=== PATIENT | female | born 1960 | race Caucasian/White ===

== ENCOUNTER → 2017-06-11 16:21 | Outpatient (CLI) | payer OTHER, SELFPAY ==
[2017-06-11 17:44] LABS: Hematocrit 32.7 % (37-47); Hemoglobin 9.8 g/dl (12.0-15.0); Mean Corpuscular Hgb 22.1 pg (27.0-32.0); Mean Corpuscular Volume 73.6 fL (81-99); Mean Platelet Vol. 10.6 fl (6.2-12.0); Platelet Count 267 K/mm3 (150-450); RBC Distribution Width CV 16.6 % (11.6-14.6); RBC Distribution Width SD 43.3 fl (35.1-43.9); Red Blood Count 4.44 M/mm3 (4.2-5.4); White Blood Count 7.5 K/mm3 (4.4-11.0)
[2017-06-11 17:49] LABS: Scan Indicated on CBC? Y/N YES- FLAGS NOTED
[2017-06-11 18:14] LABS: Differential Comment SCANNED; Erythrocyte Sedimentation Rate 13 mm/hr (0-30)
== END ==
PROVIDERS: Family Provider Internal Medicine; PCP Internal Medicine; Visit Provider Internal Medicine Gastroenterology
DX: K51.90 Ulcerative colitis, unspecified, without complications (principal)
CPT/HCPCS: 36415; 85027; 85652; 86140

== ENCOUNTER → 2017-07-09 16:27 | Outpatient (CLI) | payer OTHER, SELFPAY ==
[2017-07-12 03:07] LABS: QNTFERON TB Ag Minus Nil Value 0.12 IU/mL (.); QNTFERON TB Mitogen Value > 10.00 IU/mL (.); QNTFERON TB Nil Value 0.08 IU/mL (.)
[2017-07-12 11:32] LABS: HEPATITIS B SURFACE AG Negative (Negative); QNTIFERON TB Gold Negative (Negative)
== END ==
PROVIDERS: Family Provider Internal Medicine; PCP Internal Medicine; Visit Provider Internal Medicine Gastroenterology
DX: K51.90 Ulcerative colitis, unspecified, without complications (principal)
CPT/HCPCS: 36415; 86480; 87340

== ENCOUNTER 2017-08-31 02:22 | Emergency (ER) | payer OTHER, SELFPAY ==
[2017-08-31 02:23] VITALS: BP 136/108; PULSE 105; RESP 20; TEMP 36.8; O2SAT 96; BMI 35.1
--- NOTE | 2017-08-31 02:26 | ED.RN ---
NO OLD EKG'S IN MUSE
[2017-08-31 02:27] VITALS: PULSE 104; RESP 23; O2SAT 94
--- NOTE | 2017-08-31 02:40 | EKG12_ITS ---
Test Reason : PALPITATIONS Blood Pressure : / mmHG Vent. Rate : 105 BPM Atrial Rate : 105 BPM P-R Int : 150 ms QRS Dur : 074 ms QT Int : 332 ms P-R-T Axes : 057 078 006 degrees QTc Int : 438 ms Sinus tachycardia Nonspecific T wave abnormality Abnormal ECG Confirmed by AI AU ([id number]), supervising film or videotape editor ISABEL HENDERSON ([id number]) on 09/09/2017 6:07:10 PM Referred By: LYRIC Confirmed By:AI AU
[2017-08-31 02:49] LABS: Absolute Lymphocyte Count 2.26 X10^3/ul (0.83-4.51); Basophil# 0.06 X10^3/uL; Basophil% 0.4 % (0-1); Eosinophil# 0.13 X10^3/uL; Hematocrit 40.4 % (37-47); Hemoglobin 12.3 g/dl (12.0-15.0); Lymphocyte # 2.26 X10^3/ul (4.0); Lymphocyte % 16.9 % (19-41); Mean Corp Hgb Conc 30.4 g/gl (32-36); Mean Corpuscular Hgb 23.6 pg (27.0-32.0); Mean Corpuscular Volume 77.4 fL (81-99); Mean Platelet Vol. 10.1 fl (6.2-12.0); Monocyte# 0.96 X10^3/uL; Monocyte% 7.2 % (0-10); Neutrophil # 9.95 X10^3/uL (2.7-7.7); Neutrophil % 74.2 % (47-70); Platelet Count 401 K/mm3 (150-450); RBC Distribution Width CV 18.8 % (11.6-14.6); RBC Distribution Width SD 52.9 fl (35.1-43.9); Red Blood Count 5.22 M/mm3 (4.2-5.4); White Blood Count 13.4 K/mm3 (4.4-11.0)
[2017-08-31] MEDS: Ondansetron 4 MG/2 ML Vial IV (02:49)
--- NOTE | 2017-08-31 02:50 | RAD_ITS ---
STUDY: X-RAY CHEST REASON FOR EXAM: Female, 56 years old. Shortness of breath and cough TECHNIQUE: PA and lateral views of the chest. COMPARISON: None. FINDINGS: Patchy airspace infiltration at the left lung base, partially obscuring the hemidiaphragm. Small left pleural effusion. Right lung is clear. No pleural effusion on the right. No pneumothorax. Normal size heart. Normal mediastinum and zbigniew. Normal visualized pulmonary arteries. Normal visualized aortic arch and descending thoracic aorta. Normal visualized thoracic spine. Normal visualized ribs, clavicles, and shoulders. There is no demonstrated abnormality of the visualized soft tissue structures of the upper abdomen. RAD/Chest PA and Lateral IMPRESSION: Left basilar pneumonia with small left pleural effusion. Electronically Signed: Thierry Hernandez MD at 3:20 EDT Tel , Service support ,
[2017-08-31 02:52] LABS: POSITIVE COUNT NO; POSITIVE DIFFERENTIAL NO; POSITIVE MORPHOLOGY NO
--- NOTE | 2017-08-31 02:53 | ED.DCSUM_ITS ---
- ER Visit Summary Date of Service: 08/31/17 Chief Complaint: Cough, nausea History of Present Illness: The patient is a 56 F patient presents 3 days of symptoms. Initially started with asthma-like symptoms. She has asthma she is younger, saw a nurse practitioner 3 days ago. She is given prescription of Singulair, Rema, inhaler. Since then developed nausea and sweats. Decreased appetite. No urinary symptoms. No vomiting or diarrhea. No chest pains or shortness of breath. Wheezing improved with her inhaler. Denies any sick contacts. She states also feeling palpitations with no lightheaded symptoms. No other complaints. Past medical history: Ulcerative colitis, asthma, depression Physical Examination: General: Alert and oriented ?3, no acute distress HEENT: Normocephalic, atraumatic. Dry mucosa membranes Neck: supple, nontender. Cardiovascular: Regular rate 104 and rhythm, no murmurs Respiratory: Normal breath sounds, symmetric, no distress Abdomen: Soft, nontender, nondistended Extremities: Nontender, no edema, pulses intact ?4 Neuro: no focal neurological deficits. Test Results: EKG sinus 105, no ST or T-wave changes. White count 13.4. Creatinine 1.09. UA leukocytes 100, WBC 5-10. Urine culture pending. Two- view chest x-ray: Left basilar infiltrate Emergency Department Course and Treatment: Patient nontoxic, afebrile. Pulse ox 94 on room air. EKG obtained for palpitations slightly tachycardic. Labs no white count 13, creatinine 1.09. She given IV fluids. Urine notes leukocytes white blood cell count, she is asymptomatic, I did send for urine culture. Chest x-ray notes a left basilar infiltrate. Patient does meet SIRS criteria, clinically she is stable. I did ambulate the patient on room air went from 95-93%. Patient will be placed on Levaquin orally for 7 days. This will cover for any possible urine infections. Discussed signs and symptoms patient to return the ED, otherwise follow-up with her PCP. All questions were answered. Treatment Plan: [] Disposition: Discharge Impression: Community-acquired pneumonia This note was generated with [employer] dictation software. It may contain incorrect words, spelling, and punctuation that were not noted in review of the chart prior to signing ED Disposition - Plan for ED Patient: Disposition: Home or Assisted Living Chief Complaint: Palpitations Diagnosis: Community acquired pneumonia Instructions: ED Pneumonia Adult Prescriptions: Ondansetron [Zofran Odt] 4 mg PO Q8H PRN PRN #10 tablet PRN Reason: Nausea Levofloxacin [Levaquin] 750 mg PO DAILY #6 tablet Referrals: Ban Gong MD [Primary Care Provider] - 3-5 Days Additional Instructions: Left lower lobe infiltrate. Continue home medications as needed. Finish antibiotics as prescribed.
[2017-08-31 03:02] LABS: Anion Gap 11 (5-15); BUN 21 mg/dL (7-18); BUN/Creat Ratio 19.3 RATIO (10-20); Calcium,Total 9.1 mg/dL (8.5-10.1); Chloride 107 mmol/L (98-107); Creatinine, Serum 1.09 mg/dL (0.55-1.02); EST Glomerular Filtration Rate 55 mL/min (>60); Est Glom Filt Rate - Afr Amer 67 mL/min (>60); Estimated Creatinine Clearance 47.67 ml/min; Glucose 127 mg/dL (74-106); Potassium 4.1 mmol/L (3.5-5.1); Sodium Level 141 mmol/L (136-145)
[2017-08-31 03:08] LABS: Mucous, Urine 0 SEEN /hpf (<or=2+); Red Blood Cells-Urine 0 SEEN /hpf (0-5)
[2017-08-31 03:10] LABS: Color, Urine Yellow (Yellow); Glucose, Dipstick Normal (Normal); Ketone-Dipstick Negative (Negative); Leukocyte Esterase-Dipstick 100 /ul (Negative); Nitrite-Dipstick Negative (Negative); Occult Blood-Urine 10 /ul (Negative); Protein-Dipstick 30 mg/dl (Negative); Urine Bilirubin Dipstick Negative (Negative); Urine Clarity Sl. Cloudy (Clear); Urine Urobilinogen Normal (Normal)
[2017-08-31 03:17] LABS: Bacteria RARE /hpf (None Seen); Squamous Epithelial Cells - UA 0-5 SEEN /hpf (5-10); White Blood Cells 5-10 SEEN /hpf (0-5)
[2017-08-31 03:43] VITALS: BP 175/111; PULSE 103; RESP 18; O2SAT 95
[2017-08-31] MEDS: levoFLOXacin 750 MG Tablet PO (04:04)
[2017-08-31 04:30] VITALS: BP 159/100; PULSE 100; RESP 15
== END 2017-08-31 04:10 | disposition home or self-care (01) ==
PROVIDERS: Emergency Provider Emergency Medicine; Family Provider Internal Medicine; PCP Internal Medicine
DX: J18.9 Pneumonia, unspecified organism (principal); R00.2 Palpitations; J45.909 Unspecified asthma, uncomplicated; F32.9 Major depressive disorder, single episode, unspecified; Z79.899 Other long term (current) drug therapy
CPT/HCPCS: 71046; 80048; 81001; 85025; 87086; 87088; 93005; 96361; 96374; 99284; J7030; J7040; A4216; J2405

== ENCOUNTER 2017-09-10 15:37 | Emergency (ER) | payer OTHER, SELFPAY ==
[2017-09-10] VITALS (7 sets, daily range): BP systolic 153–158; BP diastolic 89–104; PULSE 102–113; RESP 18–24; TEMP 35.9; O2SAT 95–99; BMI 34.5
--- NOTE | 2017-09-10 15:54 | EKG12_ITS ---
Test Reason : SOB Blood Pressure : / mmHG Vent. Rate : 100 BPM Atrial Rate : 100 BPM P-R Int : 162 ms QRS Dur : 076 ms QT Int : 310 ms P-R-T Axes : -02 070 -17 degrees QTc Int : 399 ms Normal sinus rhythm Nonspecific T wave abnormality Abnormal ECG Confirmed by OSMEL VÁSQUEZ, OMER ([id number]), website/blog editor ISABEL HENDERSON ([id number]) on 09/11/2017 5:12:42 PM Referred By: HUMBERTO Confirmed By:OMER BOLIVAR MD
--- NOTE | 2017-09-10 15:56 | ED.VISSUMM ---
- ER Visit Summary Date of Service: 09/10/17 Chief Complaint: Shortness of breath History of Present Illness: The patient is a 56 F presenting with shortness of breath ?2 weeks. Patient states she was seen in the ED 10 days ago and was diagnosed with pneumonia. She was put on a course of Levaquin. States she was improving until she finished the course of antibiotics and she started becoming more short of breath again. She is on prednisone daily for history of ulcerative colitis. She also has a history of asthma. She has had a nonproductive cough and shortness of breath. She complains of chest tightness. Denies fever or other complaints. Physical Examination: Vitals are stable. Patient is afebrile. Alert no acute distress. HEENT exam is unremarkable. Pharynx is normal, uvula midline Neck is supple. Lungs are diminished bilaterally. Heart is regular rate and rhythm. Abdomen is soft nontender nondistended. Extremities are unremarkable. Skin is warm and dry. No rash No focal neurologic deficit. Remainder of exam is unremarkable. Emergency Department Course and Treatment: Patient is given albuterol, Atrovent. EKG is sinus rate of 100 unchanged from previous. CBC, chemistries unremarkable other than glucose 151, BUN 29, creatinine 1.26. Troponin 0.042. D-dimer is 3.44. Due to elevated d-dimer CTA chest was obtained and shows small bilateral pleural effusions. Differential considerations include infectious, inflammatory, neoplastic etiologies. Repeat troponin is negative. Ambulatory pulse ox is 97-98% on room air. Discussed with Dr. Mora who recommends increasing her prednisone from 10 mg to 40 mg ?5 days. She will follow-up in the office for further evaluation. She is advised to return to the ED for worsening complaints. Disposition: Discharge home Impression: Dyspnea, bilateral pleural effusion This note was generated with [employer] dictation software. It may contain incorrect words, spelling, and punctuation that were not noted in review of the chart prior to signing ED Disposition - Plan for ED Patient: Disposition: Home or Assisted Living Chief Complaint: Shortness of Breath Instructions: ED Dyspnea Shortness of Breath Prescriptions: Prednisone [Deltasone] 40 mg PO DAILY #10 tablet Referrals: Moe Mora MD [STAFF PHYSICIAN] - Ban Gong MD [Primary Care Provider] -
[2017-09-10] MEDS: Albuterol 2.5 MG/3 ML VIAL.NEB. INHALATION ×2 (16:25)
[2017-09-10] MEDS: Ipratropium/Albuterol Sulfate 3 ML AMPUL.NEB INHALATION (16:25)
[2017-09-10 16:33] LABS: Absolute Lymphocyte Count 1.52 X10^3/ul (0.83-4.51); Absolute Neutrophil Count 6.2 X10^3/uL (2.0-7.7); Basophil# 0.04 X10^3/uL; Basophil% 0.5 % (0-1); Eosinophil# 0.02 X10^3/uL; Eosinophils% 0.2 % (0-5); Hematocrit 40.2 % (37-47); Hemoglobin 12.2 g/dl (12.0-15.0); Lymphocyte # 1.52 X10^3/ul (4.0); Lymphocyte % 18.4 % (19-41); Mean Corp Hgb Conc 30.3 g/gl (32-36); Mean Corpuscular Hgb 22.9 pg (27.0-32.0); Mean Corpuscular Volume 75.4 fL (81-99); Mean Platelet Vol. 10.5 fl (6.2-12.0); Monocyte# 0.48 X10^3/uL; Monocyte% 5.8 % (0-10); Neutrophil # 6.18 X10^3/uL (2.7-7.7); Neutrophil % 74.7 % (47-70); Platelet Count 365 K/mm3 (150-450); RBC Distribution Width CV 18.7 % (11.6-14.6); RBC Distribution Width SD 50.9 fl (35.1-43.9); Red Blood Count 5.33 M/mm3 (4.2-5.4); White Blood Count 8.3 K/mm3 (4.4-11.0)
[2017-09-10 16:34] LABS: POSITIVE COUNT NO; POSITIVE DIFFERENTIAL NO; POSITIVE MORPHOLOGY NO
[2017-09-10 16:37] LABS: D-Dimer Quantitative (DVT/PE) 3.44 FEU/ug/m (0.27-0.49)
[2017-09-10 16:47] LABS: Anion Gap 10 (5-15); BUN 29 mg/dL (7-18); Calcium,Total 8.9 mg/dL (8.5-10.1); Chloride 107 mmol/L (98-107); Creatinine, Serum 1.26 mg/dL (0.55-1.02); EST Glomerular Filtration Rate 47 mL/min (>60); Est Glom Filt Rate - Afr Amer 56 mL/min (>60); Glucose 151 mg/dL (74-106); Potassium 4.7 mmol/L (3.5-5.1); Sodium Level 139 mmol/L (136-145)
--- NOTE | 2017-09-10 16:48 | CT_ITS ---
STUDY: CTA CHEST REASON FOR EXAM: Female, 56 years old. Elevated d-dimer/pneumonia RADIATION DOSAGE (If Supplied By Facility): CTDIvol = ( 15.06 ) mGy, DLP = ( 767.14 ) mGycm TECHNIQUE: The examination was performed with the intravenous administration of 100 ml of Isovue 300 contrast material. Post-processing of the angiographic images was performed, with multiplanar reformation and 3D reconstruction. Individualized dose optimization techniques were used for this CT. COMPARISON: Chest x-ray August 31, 2017 FINDINGS: Normal enhancement of the main pulmonary artery and right and left pulmonary arteries. Normal enhancement of the bilateral peripheral pulmonary arteries. There is no demonstrated pulmonary embolism. Normal thoracic aorta and visualized great vessels. There is no demonstrated aortic dissection. Normal heart and pericardium. Normal mediastinum. Normal hilar regions. Normal visualized trachea and bronchi. The lungs are well expanded. Normal pulmonary parenchyma. Small bilateral pleural effusions. Subsegmental atelectasis lung bases. Normal chest wall structures. Normal osseous structures. Normal visualized upper abdomen. CT/CTA Chest W/WO Contrast IMPRESSION: Small bilateral pleural effusions. Differential considerations include infectious, inflammatory, neoplastic etiologies. Electronically Signed: Lazaro Hassan MD at 17:48 EDT , Service support ,
[2017-09-10] MEDS: 0.9% Normal Saline 1,000 ML 999 ML IV (17:32)
--- NOTE | 2017-09-10 20:11 | ED.DEP ---
ED Disposition - Plan for ED Patient: Chief Complaint: Shortness of Breath Instructions: ED Dyspnea Shortness of Breath Prescriptions: Prednisone [Deltasone] 40 mg PO DAILY #10 tablet Referrals: Ban Gong MD [Primary Care Provider] - Moe Mora MD [STAFF PHYSICIAN] -
--- NOTE | 2017-09-10 20:27 | ED.RN ---
IV DC'ED, CATHETER INTACT, SMALL GAUZE DRESSING PLACED. DISCHARGE INSTRUCTIONS GIVEN TO AND REVIEWED WITH PATIENT, PATIENT DENIES QUESTIONS OR CONCERNS AND VOICES UNDERSTANDING OF DISCHARGE INSTRUCTIONS. PT AMBULATES OUT OF ROOM WITHOUT DIFFICULTY.
== END 2017-09-10 20:28 | disposition home or self-care (01) ==
LOC: ED 16:02
PROVIDERS: Emergency Provider Emergency Medicine; Family Provider Internal Medicine; PCP Internal Medicine
DX: J90 Pleural effusion, not elsewhere classified (principal); K51.90 Ulcerative colitis, unspecified, without complications; J45.909 Unspecified asthma, uncomplicated; Z79.82 Long term (current) use of aspirin; Z79.899 Other long term (current) drug therapy
CPT/HCPCS: 71275; 80048; 84484; 85025; 85379; 93005; 94640; 99284; Q9967; A4216

== ENCOUNTER 2017-09-12 07:05 | Inpatient (IN) | payer OTHER, SELFPAY ==
[2017-09-12] VITALS (13 sets, daily range): BP systolic 136–162; BP diastolic 92–108; PULSE 96–108; RESP 16–22; TEMP 36.4–36.7; O2SAT 92–98; BMI 37.8; BMI 37.0; BMI 37.1
--- NOTE | 2017-09-12 07:26 | RAD_ITS ---
STUDY: X-RAY CHEST REASON FOR EXAM: Female, 56 years old. Shortness of breath, recent pneumonia TECHNIQUE: PA and lateral views of the chest. COMPARISON: CTA 09/10/2017, plain radiographs 08/31/2017 FINDINGS: There is minimal atelectasis at the left midlung. A small left pleural effusion is seen. There is mild cardiac enlargement. Normal mediastinum and zbigniew. Normal visualized pulmonary arteries. Normal visualized aortic arch and descending thoracic aorta. Normal visualized thoracic spine. Normal visualized ribs, clavicles, and shoulders. There is no demonstrated abnormality of the visualized soft tissue structures of the upper abdomen. RAD/Chest PA and Lateral IMPRESSION: Minimal left-sided atelectasis with small left pleural effusion. No definite right pleural effusion is seen. Electronically Signed: Tex Martinez DO at 8:50 EDT Tel , Service support ,
--- NOTE | 2017-09-12 07:26 | EKG12_ITS ---
Test Reason : SOB Blood Pressure : / mmHG Vent. Rate : 105 BPM Atrial Rate : 105 BPM P-R Int : 158 ms QRS Dur : 074 ms QT Int : 336 ms P-R-T Axes : 044 072 -15 degrees QTc Int : 444 ms Sinus tachycardia Low voltage QRS Nonspecific T wave abnormality Abnormal ECG Confirmed by CAROL VÁSQUEZ, ABISAI ([id number]), design editor ISABEL HENDERSON ([id number]) on 09/13/2017 2:52:15 PM Referred By: SHAHBAZ Confirmed By:ABISAI MEDINA MD
[2017-09-12 07:44] LABS: Absolute Lymphocyte Count 1.87 X10^3/ul (0.83-4.51); Absolute Neutrophil Count 10.5 X10^3/uL (2.0-7.7); Basophil# 0.02 X10^3/uL; Basophil% 0.1 % (0-1); Eosinophil# 0.06 X10^3/uL; Eosinophils% 0.4 % (0-5); Hematocrit 40.2 % (37-47); Hemoglobin 12.2 g/dl (12.0-15.0); Lymphocyte # 1.87 X10^3/ul (4.0); Lymphocyte % 13.9 % (19-41); Mean Corp Hgb Conc 30.3 g/gl (32-36); Mean Corpuscular Hgb 22.7 pg (27.0-32.0); Mean Corpuscular Volume 74.9 fL (81-99); Mean Platelet Vol. 9.6 fl (6.2-12.0); Monocyte# 1.07 X10^3/uL; Monocyte% 7.9 % (0-10); Neutrophil # 10.46 X10^3/uL (2.7-7.7); Neutrophil % 77.6 % (47-70); Platelet Count 399 K/mm3 (150-450); RBC Distribution Width CV 18.6 % (11.6-14.6); RBC Distribution Width SD 49.9 fl (35.1-43.9); Red Blood Count 5.37 M/mm3 (4.2-5.4); White Blood Count 13.5 K/mm3 (4.4-11.0)
[2017-09-12 07:51] LABS: Differential Indicated SCAN CRITERIA MET; POSITIVE COUNT NO; POSITIVE DIFFERENTIAL NO; POSITIVE MORPHOLOGY YES
[2017-09-12] MEDS: Ipratropium/Albuterol Sulfate 3 ML AMPUL.NEB INHALATION (07:52)
[2017-09-12 07:59] LABS: Anion Gap 11 (5-15); BUN 31 mg/dL (7-18); BUN/Creat Ratio 23.7 RATIO (10-20); Calcium,Total 8.8 mg/dL (8.5-10.1); Chloride 105 mmol/L (98-107); Creatinine, Serum 1.31 mg/dL (0.55-1.02); EST Glomerular Filtration Rate 45 mL/min (>60); Est Glom Filt Rate - Afr Amer 54 mL/min (>60); Estimated Creatinine Clearance 39.67 ml/min; Glucose 109 mg/dL (74-106); Potassium 3.9 mmol/L (3.5-5.1); Sodium Level 137 mmol/L (136-145)
[2017-09-12 08:18] LABS: Anisocytosis 1+
[2017-09-12 08:19] LABS: Microcytosis 1+; Ovalocyte RARE
[2017-09-12 08:20] LABS: Polychromasia RARE
[2017-09-12 09:00] LABS: BNP,B-Type NATRIURETIC PEPTIDE 878.8 pg/mL (0-100)
--- NOTE | 2017-09-12 09:12 | ED.DCSUM_ITS ---
- ER Visit Summary Date of Service: 09/12/17 Chief Complaint: Shortness of breath History of Present Illness: The patient is a 56 F who presents with shortness of breath. She was seen earlier this month and treated for community-acquired pneumonia. She had transiently improved. She was seen 2 days ago for increased shortness of breath. Workup at that time included a CTA which was negative for pulmonary embolism but did show small bilateral pleural effusions. She was treated with prednisone and referred to pulmonology. The patient states that she seemed to better for a day but last night again began to become increasingly short of breath. She does have a nonproductive cough. She denies any chest pain fevers nausea or vomiting. Denies peripheral edema or weight gain Physical Examination: Heart rate 108 [place] rate 20 afebrile Moist mucous membranes Heart regular rhythm tachycardia no murmur Tachypnea but lungs are clear I do not appreciate rales rhonchi or wheezing Abdomen soft Trace symmetric lower extremity edema Alert Test Results: EKG shows sinus rhythm at a rate of [address]-T wave changes T-wave flattening. Chest x-ray shows atelectasis and a small left pleural effusion no definite right pleural effusion. Labs are notable for white blood cell count of 13.5, she is on prednisone. Troponin 0 0.058. BNP 878. Emergency Department Course and Treatment: Patient requested aerosols although her lungs are clear. She was given a DuoNeb aerosol. She remains tachypneic on reevaluation. Labs are notable for minimal elevation of troponin as well as elevated BNP. Given elevated BNP, increasing shortness of breath, pleural effusions she does appear to have a heart failure. She will require further workup including an echocardiogram. She was discussed with the hospitalist and will be admitted. Treatment Plan: [] Disposition: Admit Impression: CHF This note was generated with [employer] dictation software. It may contain incorrect words, spelling, and punctuation that were not noted in review of the chart prior to signing ED Disposition - Plan for ED Patient: Chief Complaint: Shortness of Breath Referrals: Ban Gong MD [Primary Care Provider] -
--- NOTE | 2017-09-12 09:19 | NURSING ---
PCU DYSPNEA, ACUTE CHF PAINTSIL
[2017-09-12] MEDS: Furosemide 20 MG/2 ML VIAL IV (09:27)
--- NOTE | 2017-09-12 09:56 | ECHOD_ITS ---
Reason For Study: DYSPNEA Procedure This was a 2D Doppler, Color Flow transthoracic echocardiogram. Exam performed portable in patient room. Left Ventricle Normal LV size. The estimated ejection fraction is 15 %. Severe global left ventricular systolic dysfunction. Transmitral diastolic flow velocities suggest severe (stage 3) diastolic dysfunction. There is severe global hypokinesis of the left ventricle. Right Ventricle Normal RV size. Normal systolic function. Atria The left atrium is moderately enlarged. Normal right atrium. Mitral Valve Normal mitral valve. Mild (1+) eccentric mitral valve insufficiency. Tricuspid Valve Normal tricuspid valve. Mild (1+) tricuspid valve insufficiency. Pulmonary artery systolic pressure is 40 mmHg. Aortic Valve Normal aortic valve. Trisinus/trileaflet aortic valve. Pulmonic Valve Normal pulmonic valve. Mild (1+) pulmonic valve insufficiency. Great Vessels Normal aortic root. The pulmonary artery is normal size. Normal inferior vena cava. Pericardium/Pleural No pericardial effusion. MMode/2D Measurements & Calculations LVIDd: 5.0 cm IVSd: 1.0 cm Ao root diam: 2.9 cm LVIDs: 4.9 cm LVPWd: 0.94 cm RVDd: 4.1 cm FS: 1.6 % LAV(MOD-bp): 70.6 ml EDV(MOD-sp2): 191.5 ml SV(MOD-sp2): 56.2 ml LAV(MOD-bp) Indexed: 35.9 ml/m2 EF(MOD-sp2): 29.3 % LAV(MOD-sp2): 50.0 ml LAV(MOD-sp4): 83.4 ml LA A4 area: 24.7 cm2 RA A4 area: 19.2 cm2 Doppler Measurements & Calculations MV E max adarsh: 88.4 cm/sec Lat Peak E' Adarsh: 7.0 cm/sec Med Peak E' Adarsh: 3.5 cm/sec MV A max adarsh: 60.5 cm/sec E/E' lat: 12.6 E/E' med: 24.9 MV E/A: 1.5 Ao V2 max: 72.2 cm/sec LV V1 max: 49.7 cm/sec PA V2 max: 65.6 cm/sec Ao max P.1 mmHg LV V1 max P.99 mmHg PI end-d adarsh: 143.6 cm/sec TR max adarsh: 302.6 cm/sec TR max P.6 mmHg Interpretation Summary Normal LV size. The estimated ejection fraction is 15 %. Severe global left ventricular systolic dysfunction. Transmitral diastolic flow velocities suggest severe (stage 3) diastolic dysfunction Pulmonary artery systolic pressure is 40 mmHg. Ordering Physician: Pepper Page Referring Physician: PAT LOZA Performed By: Karen Lin, OLIVERIO, RVT
--- NOTE | 2017-09-12 10:05 | HP.PCM_ITS ---
Problem List (1) Asthma Status: Chronic Qualifiers: Asthma severity: unspecified severity Asthma persistence: unspecified Asthma complication type: unspecified Qualified Code(s): J45.909 - Unspecified asthma, uncomplicated (2) Multiple environmental allergies Status: Chronic (3) Ulcerative colitis Status: Chronic Qualifiers: Ulcerative colitis location: ulcerative pancolitis Digestive disease complication type: with rectal bleeding Qualified Code(s): K51.011 - Ulcerative (chronic) pancolitis with rectal bleeding (4) Anxiety and depression Status: Chronic History of Present Illness Date of Admission: 09/12/17 Chief Complaint: SOB - worse over the last one month The patient is a 56 year old F medical history of asthma from childhood, environmental allergies who comes in with complaints of shortness of breath ongoing for a month. Patient admits to having shortness of breath around the springtime but this year is worse. She was seen in the ED on 0 08/31/2017 and was diagnosed with pneumonia and sent home on antibiotics. She presented back to the ED 2 days ago complaining of shortness of breath, previous workup was negative for any PE , patient was set up in the outpatient with the human services professional and discharged home on prednisone. Patient came back because shortness of breath has not gotten better, denies any dizziness or palpitation or chest pain with it. It is worse on walking more than 2-3 blocks or going up the flight of stairs. Denies any orthopnea or PND His vitals in the ED have been have been stable with temperature 98.1, heart rate of 108, blood pressure 136/92, respiratory rate of 20 SPO2 of 95% on room air. Patient appears to be in some mild discomfort but able to complete sentences. Past Medical History Past Medical History (Chronic Problems): Chronic Problems Asthma (Chronic) Multiple environmental allergies (Chronic) Ulcerative colitis (Chronic) Anxiety and depression (Chronic) Allergies amoxicillin Adverse Reaction (Verified 09/12/17 07:06) Diarrhea erythromycin base Adverse Reaction (Verified 09/12/17 07:06) Diarrhea Home Medications: Ambulatory Orders Medication Instructions Recorded Balsalazide Disodium [Colazal] 2,250 mg PO BID 07/28/14 Multivitamins,Therapeutic 1 tablet PO DAILY 07/28/14 [Multivitamin] [place]-3 Fatty Acids [Fish Oil] 500 mg PO DAILY 07/28/14 Paroxetine HCl [Paxil] 30 mg PO DAILY 07/28/14 Bupropion HCl [Wellbutrin Sr] 150 mg PO DAILY 08/31/17 Montelukast Sodium [Singulair] 10 mg PO DAILY 08/31/17 Albuterol Inhaler [Ventolin Hfa 1 - 2 puff INHALATION Q4H PRN PRN 09/10/17 (SP)] Prednisone [Deltasone] 40 mg PO DAILY #10 tablet 09/10/17 Fexofenadine HCl [Rema Allergy] 60 mg PO DAILY 09/12/17 Surgical History: tonsillectomy, - - tubal ligation, s/p uterine ablation of fibroids Psychiatric History: No pertinent psych hx 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 Denies: Difficulty Hearing, Difficulty Swallowing, Head Aches, Hearing Changes, Sinus Congestion, Sinus Drainage Cardiovascular: Denies: Chest Pain, Claudication, Chest Pressure, Chest Tightness, Orthopnea, Palpitations Respiratory: Reports: Shortness of Breath, Shortness of breath upon exertion. Denies: Cough, Shortness of breath at rest, Sputum production Gastrointestinal: Denies: Abdominal Pain, Constipation, Hematemesis, Nausea, Vomiting Genitourinary: Denies: Dysuria, Frequency, Incontinence Gynecological: Denies: Breast symptoms, Excessively long or heavy periods Musculoskeletal: Denies: Joint Pain, Joint Tenderness Skin: Denies: Dryness, Jaundice, Rash, Wounds Neurological: Denies: Difficulty swallowing, Focal weakness, Numbness, Tingling Psychiatric: Denies: Anxiety, Depression, Homicidal Ideations, Suicidal Ideations Hematologic/ Lymphatic: Denies: Easy Bruising, Easy Bleeding VTE Information - Inpt Only VTE Present on Admission: No VTE Pharm Prophylaxis ordered?: Yes - Physical Exam General: Alert, Oriented x3, Cooperative, - - Mild respiratory distress but not on oxygen, able to complete full sentences with stops at the end of the sentences HEENT: Atraumatic, PERRLA, EOMI, Normocephalic Oral: Moist Mucosa Neck: Supple Lungs: Clear to auscultation, Normal air movement, - - Few transmitted sounds Cardiovascular: Regular rate, Regular Rhythm, Normal S1, Normal S2, No murmurs Abdomen: Bowel Sounds Present, Soft, Non Tender, Non-Distended, No Hepato- splenomegaly Extremities: No edema Skin: No rashes, No breakdown Musculoskeletal: No Tenderness to Palpation of Joints or Extremities Lymphatic: No Cervical, Supraclavicular, or Inguinal Adenopathy Neurological: Cranial nerves II-XII grossly intact Psych/Mental Status: Normal Affect, Appropriate Vital Signs Temp Pulse Resp BP Pulse Ox 98.1 F 107 H 19 H 162/102 H 98 09/12/17 10:00 09/12/17 10:00 09/12/17 10:00 09/12/17 10:00 09/12/17 10:00 Oxygen Delivery Method Room Air Weight: 94.9 kg Body Mass Index (BMI) 37.0 Assessment/Plan 56 year old F medical history of asthma from childhood, environmental allergies who comes in with complaints of shortness of breath ongoing for a month. Recent treatment for pneumonia about 2 weeks ago. 1. Dyspnea, secondary to likely CHF exacerbation, overall underlining acute on chronic lung disease, worsening over the past few weeks, history of dyspnea around this time of the year, worse this year, history of asthma/environmental allergies, recent treatment for pneumonia on 08/31/2017, CTA of the chest shows no pneumonia showed normal pulmonary parenchyma, small bilateral pleural effusions with atelectasis, vitals are stable, no wheezes on exam. Labs remarkable for elevated BNPep of 878.8 Plan: Admit to PCU, Lasix 20mg IV bid, strict I & Os, daily weights, will reevaluate patient tomorrow, if continues to be dyspneic, will consider pulmonology consult 2. Asthma/environmental allergies, continue Rema, DuoNeb's as needed 3. Leukocytosis likely secondary to steroid use, will trend CBC D 4. MELANIE, baseline creatinine is 1.09, admitting creatinine is 1.31, slow rising creatinine in the last few weeks, will monitor creatinine especially with start of Lasix. 5. Ulcerative colitis, currently going off an acute flare, on p.o. prednisone(2 more days to end current steroid course), continue on Balsalazide 6. Anxiety/depression, on Wellbutrin and Paxil 7. DVT prophylaxis with Lovenox subcu Code Visit Inpatient E&M: 32796 Init Hosp L3
[2017-09-12] MEDS: 0.9% NaCl Peripheral Flush Adult/Peds IV ×2 (12:22→18:11)
[2017-09-12] MEDS: buPROPion (XL) 150 MG TABLET.XL PO (12:22)
[2017-09-12] MEDS: Montelukast 10 MG Tablet PO (12:22)
[2017-09-12] MEDS: Heparin Injection (Vial) 5,000 UNIT/ML VIAL 5000 UNIT SC ×2 (12:23→22:17)
[2017-09-12] MEDS: Multivitamins,Therapeutic Tablet 1 TABLET PO (12:23)
[2017-09-12] MEDS: Furosemide 40 MG/4 ML Vial IV ×2 (12:23→18:10)
--- NOTE | 2017-09-12 15:23 | CASEMGMT ---
See RN CM Assessment Link. DC PLAN: HOME -No dc needs identified. Pt states she is independent, drives, no concerns voiced. Aba VILLALOBOSN RN ACM
--- NOTE | 2017-09-12 17:07 | CON.PCM_ITS ---
Reason for Consult Date of Consultation: 09/12/17 Reason for Consultation: Shortness of breath History of Present Illness: The patient is a 56 year old F medical history of asthma from childhood, environmental allergies who comes in with complaints of shortness of breath ongoing for a month. Patient admits to having shortness of breath around the springtime but this year is worse. She was seen in the ED on 0 08/31/2017 and was diagnosed with pneumonia and sent home on antibiotics. She presented back to the ED 2 days ago complaining of shortness of breath, previous workup was negative for any PE, patient was set up in the outpatient with the human services assistant and discharged home on prednisone. Patient came back because shortness of breath has not gotten better, denies any dizziness or palpitation or chest pain with it. It is worse on walking more than 2-3 blocks or going up the flight of stairs. Denies any orthopnea or PND. She denies any chest pain but has had palpitations on occasion. As part of her workup she had an echocardiogram performed as well as a natruretic peptide level which was noted to be significantly elevated. Currently she is able to speak in half sentences without getting short of breath. Past Medical History Allergies/Adverse Reactions: Allergies amoxicillin Adverse Reaction (Verified 09/12/17 07:06) Diarrhea erythromycin base Adverse Reaction (Verified 09/12/17 07:06) Diarrhea Home Medications: Ambulatory Orders Medication Instructions Recorded Balsalazide Disodium [Colazal] 2,250 mg PO BID 07/28/14 Multivitamins,Therapeutic 1 tablet PO DAILY 07/28/14 [Multivitamin] Sumpter-3 Fatty Acids [Fish Oil] 500 mg PO DAILY 07/28/14 Paroxetine HCl [Paxil] 30 mg PO DAILY 07/28/14 Bupropion HCl [Wellbutrin Sr] 150 mg PO DAILY 08/31/17 Montelukast Sodium [Singulair] 10 mg PO DAILY 08/31/17 Albuterol Inhaler [Ventolin Hfa 1 - 2 puff INHALATION Q4H PRN PRN 09/10/17 (SP)] Prednisone [Deltasone] 40 mg PO DAILY #10 tablet 09/10/17 Fexofenadine HCl [Rema Allergy] 60 mg PO DAILY 09/12/17 Past Medical History (Chronic Problems): Chronic Problems Asthma (Chronic) Multiple environmental allergies (Chronic) Ulcerative colitis (Chronic) Anxiety and depression (Chronic) Surgical History: tonsillectomy, - - tubal ligation, s/p uterine ablation of fibroids Psychiatric History: No pertinent psych hx 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 Denies: Fever, Night Sweats Cardiovascular: Reports: Shortness of Breath, Shortness of Breath at Rest, Shortness of Breath with Exertion. Denies: Chest Discomfort, Orthopnea, PND, Peripheral Edema, Palpitations, Lightheadedness, Dizziness, Near Syncope, Syncope Respiratory: Denies: Cough, Sputum Production, Hemoptysis Gastrointestinal: Denies: Hematemesis, Hematochezia, Melena Genitourinary: Denies: Dysuria, Hematuria Skin: Denies: Rash Subjectve: Pleasant lady in no apparent distress Objective: Vital Signs Temp Pulse Resp BP Pulse Ox 98.0 F 98 20 H 144/103 H 97 09/12/17 15:08 09/12/17 15:36 09/12/17 15:08 09/12/17 15:08 09/12/17 15:08 Oxygen Delivery Method Room Air Weight: 209 lb 3.499 oz Body Mass Index (BMI) 37.0 Intake and Output for Last 24 Hours 09/10/17 09/11/17 09/12/17 23:59 23:59 23:59 Intake Total 200 / 200 Balance 200 / 200 General: Awake, Alert, Oriented x 3 HEENT: PERRL, EOMI, Sclera Non Icteric Neck: Supple, Good ROM, No Lymph Node Enlargement Lungs: Diminished Jerzy Bases Cardiovascular: Regular Rhythm, Normal S1, Normal S2, No Rubs, No Gallops, Positive S3 Murmur Murmur: Grade 2/6, Holosystolic, [place], Axilla Vascular: No Carotid Bruits, Normal Femoral Pulses, Normal Radial Pulses, Normal Dorsalis Pedal Pulse, Normal Posterior Tibial Pulses Abdomen: Bowel Sounds Present, Soft, Non Tender, No HSM, No Organomegaly Extremities: No Cyanosis, No Clubbing, No edema Neurological: No Focal Motor or Sensory Deficit 09/12/17 14:45: Troponin I 0.045 Rhythm: EKG: ECHO: Global left ventricular systolic dysfunction with an estimated ejection fraction of 15%. Mild mitral and tricuspid regurgitation present. Stress Test: Cardiac Cath: PCI: CT Surgery: Holter monitor: EPS: PPM: CXR: Chest CT Scan: Assessment/Plan 1. Shortness of breath-congestive heart failure acute systolic. Patient presents with recurrent shortness of breath which appears to be worsening despite therapy and is noted to have an elevated natruretic peptide level as well as chest x-ray findings consistent with above. Her most recent echocardiogram demonstrated severe left ventricular systolic dysfunction with an estimated ejection fraction of 15%. She does have mild pulmonary hypertension as well. Recommendation at this time will be to aggressively diurese her and start her on an NICOLASA inhibitor and low-dose beta-raymond and titrate upwards as appropriate. Evaluation of her coronary anatomy should also be undertaken to exclude coronary artery disease as a potential etiology though less likely. I have explained the above. The risk benefits and alternatives and understands and agrees to proceed.
[2017-09-12] MEDS: Carvedilol 3.125 MG TABLET PO (22:21)
[2017-09-12] MEDS: Lisinopril 5 MG Tablet PO (22:21)
[2017-09-13] VITALS (20 sets, daily range): BP systolic 119–144; BP diastolic 70–93; PULSE 64–92; RESP 16–20; TEMP 36.1–36.8; O2SAT 92–98
--- NOTE | 2017-09-13 05:55 | EKG12_ITS ---
Test Reason : AM EKG Blood Pressure : / mmHG Vent. Rate : 091 BPM Atrial Rate : 092 BPM P-R Int : 162 ms QRS Dur : 080 ms QT Int : 368 ms P-R-T Axes : 045 078 -13 degrees QTc Int : 452 ms Normal sinus rhythm Nonspecific T wave abnormality Abnormal ECG Confirmed by CAROL VÁSQUEZ, ABISAI ([id number]), story editor ISABEL HENDERSON ([id number]) on 09/19/2017 11:28:29 AM Referred By: ENA Confirmed By:ABISAI MEDINA MD
[2017-09-13 06:01] LABS: International Normalized Ratio 1.5
[2017-09-13 06:02] LABS: Partial Thromboplast Time 31.7 Seconds (24.1-36.2)
[2017-09-13 06:08] LABS: Hematocrit 40.4 % (37-47); Hemoglobin 12.4 g/dl (12.0-15.0); Mean Corp Hgb Conc 30.7 g/gl (32-36); Mean Corpuscular Hgb 22.9 pg (27.0-32.0); Mean Corpuscular Volume 74.5 fL (81-99); Mean Platelet Vol. 10.7 fl (6.2-12.0); Platelet Count 469 K/mm3 (150-450); RBC Distribution Width CV 18.9 % (11.6-14.6); Red Blood Count 5.42 M/mm3 (4.2-5.4)
[2017-09-13 06:09] LABS: Anion Gap 11 (5-15); BUN 35 mg/dL (7-18); BUN/Creat Ratio 27.6 RATIO (10-20); Calcium,Total 8.8 mg/dL (8.5-10.1); Chloride 105 mmol/L (98-107); Creatinine, Serum 1.27 mg/dL (0.55-1.02); EST Glomerular Filtration Rate 46 mL/min (>60); Est Glom Filt Rate - Afr Amer 56 mL/min (>60); Estimated Creatinine Clearance 40.92 ml/min; Glucose 99 mg/dL (74-106); Potassium 3.8 mmol/L (3.5-5.1); Sodium Level 141 mmol/L (136-145)
[2017-09-13 06:11] LABS: Scan Indicated on CBC? Y/N YES- FLAGS NOTED
[2017-09-13] MEDS: 0.9% Normal Saline 1,000 ML 15 ML IV (06:17)
[2017-09-13] MEDS: Carvedilol 3.125 MG TABLET PO ×2 (06:18→10:05)
[2017-09-13] MEDS: Lisinopril 5 MG Tablet PO ×2 (06:18→22:15)
[2017-09-13 06:24] LABS: Differential Comment SCANNED
--- NOTE | 2017-09-13 07:04 | NURSING ---
Called report to environmental laboratory technician.
[2017-09-13 07:42] LABS: BNP,B-Type NATRIURETIC PEPTIDE 1800.9 pg/mL (0-100)
--- NOTE | 2017-09-13 07:55 | PCM.PN.CARD ---
Subjectve: Patient seen and evaluated. Objective: Vital Signs Temp Pulse Resp BP Pulse Ox 98.3 F 81 16 139/86 H 92 09/13/17 04:05 09/13/17 07:35 09/13/17 04:05 09/13/17 04:05 09/13/17 07:15 Oxygen Flow Rate (L/min) 1.5 Oxygen Delivery Method Nasal Cannula Weight: 201 lb 8.04 oz Body Mass Index (BMI) 37.0 Intake and Output for Last 24 Hours 09/11/17 09/12/17 09/13/17 23:59 23:59 23:59 Intake Total 800 / 800 120 / 120 Output Total 3000 / 3000 1375 / 1375 Balance -2200 / -2200 -1255 / -1255 General: Awake, Alert, Oriented x 3 HEENT: PERRL, EOMI, Sclera Non Icteric Neck: Supple, Good ROM, No Lymph Node Enlargement Lungs: Clear to auscultation Cardiovascular: Regular Rhythm, Normal S1, Normal S2, No Rubs, No Gallops Murmur Murmur: Grade 2/6, Holosystolic, [place], Axilla Vascular: No Carotid Bruits, Normal Femoral Pulses, Normal Radial Pulses, Normal Dorsalis Pedal Pulse, Normal Posterior Tibial Pulses Abdomen: Bowel Sounds Present, Soft, Non Tender, No HSM, No Organomegaly Extremities: No Cyanosis, No Clubbing, No edema Neurological: No Focal Motor or Sensory Deficit 09/12/17 14:45: Troponin I 0.045 09/13/17 05:10: Sodium 141, Potassium 3.8, Chloride 105, Carbon Dioxide 25.0, Anion Gap 11, BUN 35 H, Creatinine 1.27 H, Est GFR (MDRD) Af Amer 56 L, Est GFR (MDRD) Non-Af 46 L, BUN/Creatinine Ratio 27.6 H, Glucose 99, Calcium 8.8, Magnesium 2.0 09/13/17 05:10: WBC 15.0 H, RBC 5.42 H, Hgb 12.4, Hct 40.4, MCV 74.5 L, MCH 22.9 L, MCHC 30.7 L, RDW 18.9 H, RDW Differential 50.0 H, Plt Count 469 H, MPV 10.7 09/13/17 05:10: B-Natriuretic Peptide 1800.9 H 09/13/17 05:10: PT 18.0 H, INR 1.5, APTT 31.7 Rhythm: EKG: ECHO: Stress Test: Cardiac Cath: PCI: CT Surgery: Holter monitor: EPS: PPM: CXR: Chest CT Scan: Medical Necessity - Tobacco Use Smoking Status: Never smoker Tobacco Use: Non-smoker Assessment/Plan 1. Shortness of breath-congestive heart failure acute systolic. Patient presents with recurrent shortness of breath which appears to be worsening despite therapy and is noted to have an elevated natruretic peptide level as well as chest x-ray findings consistent with above. Her most recent echocardiogram demonstrated severe left ventricular systolic dysfunction with an estimated ejection fraction of 15%. She does have mild pulmonary hypertension as well. Recommendation at this time will be to aggressively diurese her and start her on an NICOLASA inhibitor and low-dose beta-raymond and titrate upwards as appropriate. She underwent cardiac catheterization which demonstrated the following: Normal left main coronary artery. Left anterior descending artery with no significant stenosis. Left circumflex artery with no significant stenosis. Dominant right coronary artery with no significant stenosis. Severe left ventricular systolic dysfunction estimated EF 10-15%. Elevated left ventricular end-diastolic pressure. 2-3+ mitral regurgitation. Based on the above angiographic findings the patient will be continued on the medications as noted above. I do not think that this is related to her pulmonary condition. Would recommend weaning off her prednisone. We will follow-up as outpatient.
--- NOTE | 2017-09-13 09:01 | CASEMGMT ---
According to [facility] website, the following are in-network tertiary facilities: [facility], [place], [facility], [facility], [facility], [place], [facility], and . Lindsay OWUSU CM
--- NOTE | 2017-09-13 09:41 | CL.D_ITS ---
Patient Name: SHRUTHI HENDERSON Study Date: 09/13/2017 Performing: Ryan Boyer MD Ht: 62.99 inches 160 cm : 1960 Wt: 200.62 lbs 91 kg Age: 56 Gender: female BSA: 1.94 PROCEDURE(S) PERFORMED XX05-MAY/COR/LV CLINICAL PROFILE AND INDICATIONS Indications: Cardiomyopathy Heart Failure: NYHA Class: 3, Newly Diagnosed: Yes, Heart Failure Type: Systolic Stress/Imaging Stress/Image Study Performed: No CAD Presentations: No Sxs, no angina. CONCLUSIONS Normal coronary arteries Cardiomyopathy: Congestive RECOMMENDATIONS Medical therapy DESCRIPTION OF PROCEDURE The patient arrived to the procedure lab. The risks and benefits of the procedure as well as a full d escription of our services here and current unavailability of surgical backup were fully explained to the patient and/or their significant other prior to the catheterization. The Timeout was completed, verifying the correct patient and procedure. The patient's procedural site was prepped and draped in the usual fashion. Local anesthetic was given subcutaneously to right radial region with Lidocaine 2% . Using a modified Seldinger technique, arterial access was obtained via the right radial artery, a 6 Fr sheath was inserted. Right Coronary Artery selective angiography was then performed in multiple v iews using a 5 Fr. 4.0 Newton catheter. Left Coronary Artery selective angiography was performed in mu ltiple views using a 5 Fr. 4.0 Newton catheter. Left Ventriculography was performed in ODEN projection using a 5 Fr. Pigtail catheter. LV to AO pullback pressures were then recorded.The arterial sheath wa s pulled and a TR Band was applied for hemostasis CORONARY ANGIOGRAPHY DOMINANCE: Right Dominant LEFT HEART ASSESSMENT Left Ventricular Ejection Fraction: by LV Gram 10 % Global Hypokinesis - Severe Depressed Left Ventricular systolic function LEFT MAIN: Angiographically normal LEFT ANTERIOR DECENDING ARTERY: Angiographically normal CIRCUMFLEX ARTERY: Angiographically normal RIGHT CORONARY ARTERY: Angiographically normal VALVE FINDINGS: Mitral Valve Insufficiency - Grade 3 COMPLICATIONS No Complications PROCEDURE MEDICATIONS Fentanyl 50 mcg IV Versed 1 mg IV Oxygen: 2 L/min via nasal cannula Heparin given IA 09/13/2017 07:38:13 Lasix 40 mg IV 09/13/2017 07:51:25 Verapamil 2.5mg, Ntg 100mcgs, 2000 units of Heparin given IA 09/13/2017 07:38:13 SUMMARY OF HEMODYNAMIC DATA Time AIR REST ECG 07:18:25 AO 130/93 (107) SA 07:41:38 LV 124/21, 36 07:49:52 LV 131/22, 38 07:49:59 LV 133/23, 37 07:51:36 LV 124/20, 37 07:51:44 LVp 128/19, 37 07:51:50 AOp 134/83 (102) 07:51:55 Signed By Ryan Boyer MD On 09/13/2017 08:02:29 Ryan Boyer MD
[2017-09-13] MEDS: Loratadine 10 MG Tablet 5 MG PO (10:05)
[2017-09-13] MEDS: buPROPion (XL) 150 MG TABLET.XL PO (10:05)
[2017-09-13] MEDS: predniSONE 20 MG Tablet 40 MG PO (10:05)
[2017-09-13] MEDS: Montelukast 10 MG Tablet PO (10:06)
[2017-09-13] MEDS: Multivitamins,Therapeutic Tablet 1 TABLET PO (10:06)
[2017-09-13] MEDS: Furosemide 40 MG/4 ML Vial IV (17:11)
[2017-09-13] MEDS: 0.9% NaCl Peripheral Flush Adult/Peds IV (17:11)
--- NOTE | 2017-09-13 17:22 | PCM.PN.HOSP ---
Subjective: Patient seen and examined. No new complaints. She had a cardiac cath today that showed nonobstructive lesions. Patient's feels better. Slightly short of breath with exertion. Still has orthopnea, no PND or leg swelling. Started on Lasix by cardiology Objective: Physical Exam General: Alert, Oriented x3, Cooperative, improved, not on oxygen HEENT: Atraumatic, PERRLA, EOMI, Normocephalic Oral: Moist Mucosa Neck: Supple Lungs: Clear to auscultation, Normal air movement, - - Few transmitted sounds Cardiovascular: Regular rate, Regular Rhythm, Normal S1, Normal S2, No murmurs Abdomen: Bowel Sounds Present, Soft, Non Tender, Non-Distended, No Hepato-splenomegaly Extremities: No edema Skin: No rashes, No breakdown Musculoskeletal: No Tenderness to Palpation of Joints or Extremities Lymphatic: No Cervical, Supraclavicular, or Inguinal Adenopathy Neurological: Cranial nerves II-XII grossly intact Psych/Mental Status: Normal Affect, Appropriate Vitals/I&O's: Vital Signs Temp Pulse Resp BP Pulse Ox 97.4 F L 84 18 139/93 H 92 09/13/17 16:06 09/13/17 16:06 09/13/17 16:06 09/13/17 16:06 09/13/17 16:06 Oxygen Flow Rate (L/min) 2 Oxygen Delivery Method Room Air Weight: 91.4 kg Body Mass Index (BMI) 37.0 Intake and Output for Last 24 Hours 09/11/17 09/12/17 09/13/17 23:59 23:59 23:59 Intake Total 800 / 800 320 / 320 Output Total 3000 / 3000 2825 / 2825 Balance -2200 / -2200 -2505 / -2505 Laboratory Results 09/13/17 05:10: Sodium 141, Potassium 3.8, Chloride 105, Carbon Dioxide 25.0, Anion Gap 11, BUN 35 H, Creatinine 1.27 H, Estim Creat Clear Calc 40.92, Est GFR (MDRD) Af Amer 56 L, Est GFR (MDRD) Non-Af 46 L, BUN/Creatinine Ratio 27.6 H, Glucose 99, Calcium 8.8, Magnesium 2.0 09/13/17 05:10: WBC 15.0 H, RBC 5.42 H, Hgb 12.4, Hct 40.4, MCV 74.5 L, MCH 22.9 L, MCHC 30.7 L, RDW 18.9 H, RDW Differential 50.0 H, Plt Count 469 H, MPV 10.7, Differential Comment SCANNED 09/13/17 05:10: B-Natriuretic Peptide 1800.9 H 09/13/17 05:10: PT 18.0 H, INR 1.5, APTT 31.7 Current Medications Acetaminophen (Tylenol) 650 mg PO Q6H PRN PRN PRN Reason: Mild Pain (1-3)/Temp > 100.7 F Bupropion HCl (Wellbutrin Xl) 150 mg PO DAILY [facility] Last Admin: 09/13/17 10:05 Dose: 150 mg Carvedilol (Coreg) 6.25 mg PO BID [facility] Furosemide (Lasix) 40 mg IV BID@1000,1800 [facility] Last Admin: 09/13/17 17:11 Dose: 40 mg Heparin Sodium (Porcine) (Heparin Na) 5,000 unit SC Q12 [facility] Last Admin: 09/13/17 16:08 Dose: Not Given Sodium Chloride () 1,000 mls @ 15 mls/hr IV .Q48H [facility] PRN Reason: KVO Last Admin: 09/13/17 06:17 Dose: 15 mls/hr Lisinopril (Zestril) 5 mg PO BID [facility] Last Admin: 09/13/17 06:18 Dose: 5 mg Loratadine (Claritin) 5 mg PO DAILY [facility] Last Admin: 09/13/17 10:05 Dose: 5 mg Magnesium Hydroxide (Milk Of Magnesia) 30 ml PO DAILY PRN PRN Reason: Constipation Montelukast Sodium (Singulair) 10 mg PO DAILY [facility] Last Admin: 09/13/17 10:06 Dose: 10 mg [facility]it[facility] ([facility]) [facility] Last Admin: 09/13/17 10:06 Dose: 1 tablet Non-Formulary Medication (Balsalazide Disodium [Colazal]) 2,250 mg PO BID [facility] Paroxetine HCl (Paxil) 30 mg PO DAILY [facility] Last Admin: 09/13/17 10:05 Dose: 30 mg Prednisone () [facility] Stop: 09/14/17 08:01 Last Admin: 09/13/17 10:05 Dose: 40 mg Psyllium Hydrophilic Mucilloid (Metamucil) 1 packet PO DAILY PRN PRN PRN Reason: CONSTIPATION Sodium Chloride () 5 - 30 ml IV UD PRN PRN Reason: SALINE FLUSH Last Admin: 09/13/17 17:11 Dose: 10 ml Medical Necessity - Tobacco Use Smoking Status: Never smoker Tobacco Use: Non-smoker Assessment/Plan 56 year old F medical history of asthma from childhood, environmental allergies who comes in with complaints of shortness of breath ongoing for a month. Recent treatment for pneumonia about 2 weeks ago. 1. Acute systolic CHF, newly diagnosed, status post cardiac cath, findings including nonobstructive lesions, lost 3 kg since admission, has been restarted on Lasix, started on carvedilol, NICOLASA inhibitor, will continue with strict I's and O's, daily weights 2. Asthma/environmental allergies, continue Rema, DuoNeb's as needed 3. Leukocytosis likely secondary to steroid use/stress, will continue to trend CBCD 4. MELANIE, baseline creatinine is 1.09, admitting creatinine is 1.31, slightly improved to 1.27 today, to monitor BMP 5. Ulcerative colitis, currently going off an acute flare, on p.o. prednisone(2 more days to end current steroid course), continue on Balsalazide 6. Anxiety/depression, on Wellbutrin and Paxil 7. DVT prophylaxis with Lovenox subcu Code Visit Inpatient E&M: 78088 Subs Hosp L3
--- NOTE | 2017-09-13 17:30 | PN_ITS ---
Subjective: Patient seen and examined. No new complaints. She had a cardiac cath today that showed nonobstructive lesions. Patient's feels better. Slightly short of breath with exertion. Still has orthopnea, no PND or leg swelling. Started on Lasix by cardiology Objective: Physical Exam General: Alert, Oriented x3, Cooperative, improved, not on oxygen HEENT: Atraumatic, PERRLA, EOMI, Normocephalic Oral: Moist Mucosa Neck: Supple Lungs: Clear to auscultation, Normal air movement, - - Few transmitted sounds Cardiovascular: Regular rate, Regular Rhythm, Normal S1, Normal S2, No murmurs Abdomen: Bowel Sounds Present, Soft, Non Tender, Non-Distended, No Hepato- splenomegaly Extremities: No edema Skin: No rashes, No breakdown Musculoskeletal: No Tenderness to Palpation of Joints or Extremities Lymphatic: No Cervical, Supraclavicular, or Inguinal Adenopathy Neurological: Cranial nerves II-XII grossly intact Psych/Mental Status: Normal Affect, Appropriate Vitals/I&O's: Vital Signs Temp Pulse Resp BP Pulse Ox 97.4 F L 84 18 139/93 H 92 09/13/17 16:06 09/13/17 16:06 09/13/17 16:06 09/13/17 16:06 09/13/17 16:06 Oxygen Flow Rate (L/min) 2 Oxygen Delivery Method Room Air Weight: 91.4 kg Body Mass Index (BMI) 37.0 Intake and Output for Last 24 Hours 09/11/17 09/12/17 09/13/17 23:59 23:59 23:59 Intake Total 800 / 800 320 / 320 Output Total 3000 / 3000 2825 / 2825 Balance -2200 / -2200 -2505 / -2505 Laboratory Results 09/13/17 05:10: Sodium 141, Potassium 3.8, Chloride 105, Carbon Dioxide 25.0, Anion Gap 11, BUN 35 H, Creatinine 1.27 H, Estim Creat Clear Calc 40.92, Est GFR (MDRD) Af Amer 56 L, Est GFR (MDRD) Non-Af 46 L, BUN/Creatinine Ratio 27.6 H , Glucose 99, Calcium 8.8, Magnesium 2.0 09/13/17 05:10: WBC 15.0 H, RBC 5.42 H, Hgb 12.4, Hct 40.4, MCV 74.5 L, MCH 22.9 L, MCHC 30.7 L, RDW 18.9 H, RDW Differential 50.0 H, Plt Count 469 H, MPV 10.7, Differential Comment SCANNED 09/13/17 05:10: B-Natriuretic Peptide 1800.9 H 09/13/17 05:10: PT 18.0 H, INR 1.5, APTT 31.7 Current Medications Acetaminophen (Tylenol) 650 mg PO Q6H PRN PRN PRN Reason: Mild Pain (1-3)/Temp > 100.7 F Bupropion HCl (Wellbutrin Xl) 150 mg PO DAILY [facility] Last Admin: 09/13/17 10:05 Dose: 150 mg Carvedilol (Coreg) 6.25 mg PO BID [facility] Furosemide (Lasix) 40 mg IV BID@1000,1800 [facility] Last Admin: 09/13/17 17:11 Dose: 40 mg Heparin Sodium (Porcine) (Heparin Na) 5,000 unit SC Q12 [facility] Last Admin: 09/13/17 16:08 Dose: Not Given Sodium Chloride () 1,000 mls @ 15 mls/hr IV .Q48H [facility] PRN Reason: KVO Last Admin: 09/13/17 06:17 Dose: 15 mls/hr Lisinopril (Zestril) 5 mg PO BID [facility] Last Admin: 09/13/17 06:18 Dose: 5 mg Loratadine (Claritin) 5 mg PO DAILY [facility] Last Admin: 09/13/17 10:05 Dose: 5 mg Magnesium Hydroxide (Milk Of Magnesia) 30 ml PO DAILY PRN PRN Reason: Constipation Montelukast Sodium (Singulair) 10 mg PO DAILY [facility] Last Admin: 09/13/17 10:06 Dose: 10 mg [facility] Last Admin: 09/13/17 10:06 Dose: 1 tablet Non-Formulary Medication (Balsalazide Disodium [Colazal]) 2,250 mg PO BID [facility] Paroxetine HCl (Paxil) 30 mg PO DAILY [facility] Last Admin: 09/13/17 10:05 Dose: 30 mg Prednisone () [facility] Stop: 09/14/17 08:01 Last Admin: 09/13/17 10:05 Dose: 40 mg Psyllium Hydrophilic Mucilloid (Metamucil) 1 packet PO DAILY PRN PRN PRN Reason: CONSTIPATION Sodium Chloride () 5 - 30 ml IV UD PRN PRN Reason: SALINE FLUSH Last Admin: 09/13/17 17:11 Dose: 10 ml Medical Necessity - Tobacco Use Smoking Status: Never smoker Tobacco Use: Non-smoker Assessment/Plan 56 year old F medical history of asthma from childhood, environmental allergies who comes in with complaints of shortness of breath ongoing for a month. Recent treatment for pneumonia about 2 weeks ago. 1. Acute systolic CHF, newly diagnosed, status post cardiac cath, findings including nonobstructive lesions, lost 3 kg since admission, has been restarted on Lasix, started on carvedilol, NICOLASA inhibitor, will continue with strict I's and O's, daily weights 2. Asthma/environmental allergies, continue Rema, DuoNeb's as needed 3. Leukocytosis likely secondary to steroid use/stress, will continue to trend CBCD 4. MELANIE, baseline creatinine is 1.09, admitting creatinine is 1.31, slightly improved to 1.27 today, to monitor BMP 5. Ulcerative colitis, currently going off an acute flare, on p.o. prednisone(2 more days to end current steroid course), continue on Balsalazide 6. Anxiety/depression, on Wellbutrin and Paxil 7. DVT prophylaxis with Lovenox subcu Code Visit Inpatient E&M: 06718 Subs Hosp L3
[2017-09-13] MEDS: Carvedilol 6.25 MG Tablet PO (22:15)
[2017-09-13] MEDS: Heparin Injection (Vial) 5,000 UNIT/ML VIAL 5000 UNIT SC (22:15)
[2017-09-14] VITALS (11 sets, daily range): BP systolic 112–130; BP diastolic 62–81; PULSE 68–83; RESP 16–18; TEMP 36.2–36.7; O2SAT 94–98
[2017-09-14 06:38] LABS: Absolute Lymphocyte Count 2.39 X10^3/ul (0.83-4.51); Absolute Neutrophil Count 8.2 X10^3/uL (2.0-7.7); Basophil# 0.01 X10^3/uL; Basophil% 0.1 % (0-1); Eosinophil# 0.04 X10^3/uL; Eosinophils% 0.3 % (0-5); Hematocrit 38.9 % (37-47); Hemoglobin 11.5 g/dl (12.0-15.0); Lymphocyte # 2.39 X10^3/ul (4.0); Lymphocyte % 20.4 % (19-41); Mean Corp Hgb Conc 29.6 g/gl (32-36); Mean Corpuscular Hgb 22.4 pg (27.0-32.0); Mean Corpuscular Volume 75.7 fL (81-99); Mean Platelet Vol. 10.2 fl (6.2-12.0); Monocyte# 1.08 X10^3/uL; Monocyte% 9.2 % (0-10); Neutrophil # 8.18 X10^3/uL (2.7-7.7); Neutrophil % 69.9 % (47-70); Platelet Count 341 K/mm3 (150-450); RBC Distribution Width CV 18.2 % (11.6-14.6); RBC Distribution Width SD 50.3 fl (35.1-43.9); Red Blood Count 5.14 M/mm3 (4.2-5.4); White Blood Count 11.7 K/mm3 (4.4-11.0)
[2017-09-14 06:39] LABS: POSITIVE COUNT NO; POSITIVE DIFFERENTIAL NO; POSITIVE MORPHOLOGY NO
[2017-09-14 07:08] LABS: Anion Gap 8 (5-15); BUN 36 mg/dL (7-18); BUN/Creat Ratio 30.3 RATIO (10-20); Calcium,Total 8.4 mg/dL (8.5-10.1); Chloride 105 mmol/L (98-107); Creatinine, Serum 1.19 mg/dL (0.55-1.02); EST Glomerular Filtration Rate 50 mL/min (>60); Est Glom Filt Rate - Afr Amer 60 mL/min (>60); Estimated Creatinine Clearance 43.67 ml/min; Glucose 83 mg/dL (74-106); Potassium 3.8 mmol/L (3.5-5.1); Sodium Level 139 mmol/L (136-145)
[2017-09-14] MEDS: predniSONE 20 MG Tablet 40 MG PO (09:32)
[2017-09-14] MEDS: Multivitamins,Therapeutic Tablet 1 TABLET PO (09:32)
[2017-09-14] MEDS: BALSALAZIDE DISODIUM 750 MG CAPSULE 3000 MG PO ×2 (09:33→21:53)
[2017-09-14] MEDS: Loratadine 10 MG Tablet 5 MG PO (09:34)
[2017-09-14] MEDS: Carvedilol 6.25 MG Tablet PO ×2 (09:35→21:53)
[2017-09-14] MEDS: Montelukast 10 MG Tablet PO (09:36)
[2017-09-14] MEDS: buPROPion (XL) 150 MG TABLET.XL PO (09:36)
[2017-09-14] MEDS: Lisinopril 5 MG Tablet PO ×2 (09:37→21:52)
[2017-09-14] MEDS: Furosemide 40 MG/4 ML Vial IV ×2 (09:38→18:34)
[2017-09-14] MEDS: Heparin Injection (Vial) 5,000 UNIT/ML VIAL 5000 UNIT SC ×2 (09:38→21:52)
[2017-09-14] MEDS: 0.9% NaCl Peripheral Flush Adult/Peds IV ×2 (09:39→18:35)
--- NOTE | 2017-09-14 13:16 | PCM.PN.CARD ---
Subjectve: The patient states she is feeling better overall. She notes that she has been able to place her bed anymore supine position and breathe more comfortably. She notes her lower extremity edema has improved. Objective: Vital Signs Temp Pulse Resp BP Pulse Ox 97.7 F L 74 18 130/62 H 97 09/14/17 09:25 09/14/17 11:04 09/14/17 09:25 09/14/17 09:25 09/14/17 09:25 Oxygen Flow Rate (L/min) 2 Oxygen Delivery Method Room Air Weight: 201 lb 0.985 oz Body Mass Index (BMI) 37.0 Intake and Output for Last 24 Hours 09/12/17 09/13/17 09/14/17 23:59 23:59 23:59 Intake Total 800 / 800 970 / 970 790 / 790 Output Total 3000 / 3000 4975 / 4975 1500 / 1500 Balance -2200 / -2200 -4005 / -4005 -710 / -710 General: Awake, Alert, Oriented x 3, Cooperative, No Acute Distress HEENT: Atraumatic, Normocephalic, PERRL, EOMI, Sclera Non Icteric Neck: Supple, Good ROM, No JVD Lungs: Clear to auscultation Cardiovascular: Regular Rhythm, Normal S1, Normal S2 Murmur Murmur: Grade 2/6, Holosystolic, [place], Axilla Vascular: No Carotid Bruits Abdomen: Bowel Sounds Present, Soft, Non Tender Extremities: No Cyanosis, No Clubbing, No edema 09/14/17 05:45: WBC 11.7 H, RBC 5.14, Hgb 11.5 L, Hct 38.9, MCV 75.7 L, MCH 22.4 L, MCHC 29.6 L, RDW 18.2 H, RDW Differential 50.3 H, Plt Count 341, MPV 10.2, Immature Gran % (Auto) 0.100, Neut % (Auto) 69.9, Lymph % (Auto) 20.4, [place] % (Auto) 9.2, Eos % (Auto) 0.3, Baso % (Auto) 0.1, Absolute Neuts (auto) 8.2 H, Total Counted Not Reportable 09/14/17 05:45: Sodium 139, Potassium 3.8, Chloride 105, Carbon Dioxide 26.0, Anion Gap 8, BUN 36 H, Creatinine 1.19 H, Est GFR (MDRD) Af Amer 60, Est GFR (MDRD) Non-Af 50 L, BUN/Creatinine Ratio 30.3 H, Glucose 83, Calcium 8.4 L Rhythm: Sinus rhythm Medical Necessity - Tobacco Use Smoking Status: Never smoker Tobacco Use: Non-smoker Assessment/Plan 1. Systolic CHF: Acute The patient appears to be symptomatically improved. She is continuing medical management. This includes a combination of beta-blockers, diuretics, and afterload reducing agents. 2. Non-CAD related cardiomyopathy The patient has been diagnosed with a non-CAD related cardiomyopathy. She will continue medical management. This includes medications as noted above. She will eventually need follow-up echocardiographic studies to monitor her left ventricular wall motion and systolic function. If over time her overall LV systolic function does not improve then she will need to be considered for primary prevention ICD placement. 3. Mitral valve disorder/regurgitation She does have underlying MR. At the present time she would continue medical management for her aforementioned conditions. Her mitral valve anatomy and physiology will be followed over time with echocardiographic studies. Comment: The above was discussed and reviewed with the patient. This note was generated with [employer] software. It may contain incorrect words, spelling, and punctuation that were not noted in checking the note before signing.
--- NOTE | 2017-09-14 15:32 | PCM.PN.HOSP ---
Subjective: Patient was seen and examined. Denies any new complains. Feels better. Diuresing well. Objective: Physical exam: General: Awake, Alert, Oriented x 3, Cooperative, No Acute Distress HEENT: Atraumatic, Normocephalic, PERRL, EOMI, Sclera Non Icteric Neck: Supple, Good ROM, No JVD Lungs: Clear to auscultation Cardiovascular: Regular Rhythm, Normal S1, Normal S2 2/6 holosystolic Murmur Murmur: Grade 2/6, Holosystolic, [place], Axilla Vascular: No Carotid Bruits Abdomen: Bowel Sounds Present, Soft, Non Tender Extremities: No edema Vitals/I&O's: Vital Signs Temp Pulse Resp BP Pulse Ox 97.2 F L 78 18 112/79 95 09/14/17 15:29 09/14/17 15:29 09/14/17 15:29 09/14/17 15:29 09/14/17 15:29 Oxygen Flow Rate (L/min) 2 Oxygen Delivery Method Room Air Weight: 91.2 kg Body Mass Index (BMI) 37.0 Intake and Output for Last 24 Hours 09/12/17 09/13/17 09/14/17 23:59 23:59 23:59 Intake Total 800 / 800 970 / 970 790 / 790 Output Total 3000 / 3000 4975 / 4975 1500 / 1500 Balance -2200 / -2200 -4005 / -4005 -710 / -710 Laboratory Results 09/14/17 05:45: WBC 11.7 H, RBC 5.14, Hgb 11.5 L, Hct 38.9, MCV 75.7 L, MCH 22.4 L, MCHC 29.6 L, RDW 18.2 H, RDW Differential 50.3 H, Plt Count 341, MPV 10.2, Immature Gran % (Auto) 0.100, Neut % (Auto) 69.9, Lymph % (Auto) 20.4, [place] % (Auto) 9.2, Eos % (Auto) 0.3, Baso % (Auto) 0.1, Absolute Neuts (auto) 8.2 H, Absolute Lymphs (auto) 2.39, Total Counted Not Reportable 09/14/17 05:45: Sodium 139, Potassium 3.8, Chloride 105, Carbon Dioxide 26.0, Anion Gap 8, BUN 36 H, Creatinine 1.19 H, Estim Creat Clear Calc 43.67, Est GFR (MDRD) Af Amer 60, Est GFR (MDRD) Non-Af 50 L, BUN/Creatinine Ratio 30.3 H, Glucose 83, Calcium 8.4 L Current Medications Acetaminophen (Tylenol) 650 mg PO Q6H PRN PRN PRN Reason: Mild Pain (1-3)/Temp > 100.7 F Aspirin (Aspirin, Baby) 81 mg PO DAILY@0800 [facility] Balsalazide (Balsalazide Disodium) 3,000 mg PO BID [facility] Last Admin: 09/14/17 09:33 Dose: 3,000 mg Bupropion HCl (Wellbutrin Xl) 150 mg PO DAILY [facility] Last Admin: 09/14/17 09:36 Dose: 150 mg Carvedilol (Coreg) 6.25 mg PO BID [facility] Last Admin: 09/14/17 09:35 Dose: 6.25 mg Furosemide (Lasix) 40 mg IV BID@1000,1800 [facility] Last Admin: 09/14/17 09:38 Dose: 40 mg Heparin Sodium (Porcine) (Heparin Na) 5,000 unit SC Q12 [facility] Last Admin: 09/14/17 09:38 Dose: 5,000 u Sodium Chloride () 1,000 mls @ 15 mls/hr IV .Q48H [facility] PRN Reason: KVO Last Admin: 09/13/17 06:17 Dose: 15 mls/hr Lisinopril (Zestril) 5 mg PO BID [facility] Last Admin: 09/14/17 09:37 Dose: 5 mg Loratadine (Claritin) 5 mg PO DAILY [facility] Last Admin: 09/14/17 09:34 Dose: 5 mg Magnesium Hydroxide (Milk Of Magnesia) 30 ml PO DAILY PRN PRN Reason: Constipation Montelukast Sodium (Singulair) 10 mg PO DAILY [facility] Last Admin: 09/14/17 09:36 Dose: 10 mg [facility]ivit[facility] ([facility]ivitamin) [facility] Last Admin: 09/14/17 09:32 Dose: 1 tablet Paroxetine HCl (Paxil) 30 mg PO DAILY [facility] Last Admin: 09/14/17 09:35 Dose: 30 mg Psyllium Hydrophilic Mucilloid (Metamucil) 1 packet PO DAILY PRN PRN PRN Reason: CONSTIPATION Sodium Chloride () 5 - 30 ml IV UD PRN PRN Reason: SALINE FLUSH Last Admin: 09/14/17 09:39 Dose: 10 ml Medical Necessity - Tobacco Use Smoking Status: Never smoker Tobacco Use: Non-smoker Assessment/Plan 56 year old F with PMHx childhood asthma, environmental allergies who comes in with complaints of shortness of breath ongoing for a month. Recent treatment for pneumonia about 2 weeks ago. 1. Acute systolic CHF, newly diagnosed, status post cardiac cath, findings including non-obstructive lesions, diuresing, improving, remains on Lasix, started on carvedilol, NICOLASA inhibitor, will continue with strict I's and O's, daily weights 2. Asthma/environmental allergies, continue Rema, DuoNeb's as needed 3. Leukocytosis likely secondary to steroid use/stress, improving 4. MELANIE, baseline creatinine is 1.09, admitting creatinine is 1.31, further improving, will continue to monitor 5. Ulcerative colitis, currently going off an acute flare, on p.o. prednisone(2 more days to end current steroid course), continue on Balsalazide 6. Anxiety/depression, on Wellbutrin and Paxil 7. DVT prophylaxis with Lovenox subcu Code Visit Inpatient E&M: 86485 Subs Hosp L2
--- NOTE | 2017-09-14 15:42 | PN_ITS ---
Subjective: Patient was seen and examined. Denies any new complains. Feels better. Diuresing well. Objective: Physical exam: General: Awake, Alert, Oriented x 3, Cooperative, No Acute Distress HEENT: Atraumatic, Normocephalic, PERRL, EOMI, Sclera Non Icteric Neck: Supple, Good ROM, No JVD Lungs: Clear to auscultation Cardiovascular: Regular Rhythm, Normal S1, Normal S2 2/6 holosystolic Murmur Murmur: Grade 2/6, Holosystolic, [place], Axilla Vascular: No Carotid Bruits Abdomen: Bowel Sounds Present, Soft, Non Tender Extremities: No edema Vitals/I&O's: Vital Signs Temp Pulse Resp BP Pulse Ox 97.2 F L 78 18 112/79 95 09/14/17 15:29 09/14/17 15:29 09/14/17 15:29 09/14/17 15:29 09/14/17 15:29 Oxygen Flow Rate (L/min) 2 Oxygen Delivery Method Room Air Weight: 91.2 kg Body Mass Index (BMI) 37.0 Intake and Output for Last 24 Hours 09/12/17 09/13/17 09/14/17 23:59 23:59 23:59 Intake Total 800 / 800 970 / 970 790 / 790 Output Total 3000 / 3000 4975 / 4975 1500 / 1500 Balance -2200 / -2200 -4005 / -4005 -710 / -710 Laboratory Results 09/14/17 05:45: WBC 11.7 H, RBC 5.14, Hgb 11.5 L, Hct 38.9, MCV 75.7 L, MCH 22.4 L, MCHC 29.6 L, RDW 18.2 H, RDW Differential 50.3 H, Plt Count 341, MPV 10.2, Immature Gran % (Auto) 0.100, Neut % (Auto) 69.9, Lymph % (Auto) 20.4, [place] % (Auto) 9.2, Eos % (Auto) 0.3, Baso % (Auto) 0.1, Absolute Neuts (auto) 8.2 H, Absolute Lymphs (auto) 2.39, Total Counted Not Reportable 09/14/17 05:45: Sodium 139, Potassium 3.8, Chloride 105, Carbon Dioxide 26.0, Anion Gap 8, BUN 36 H, Creatinine 1.19 H, Estim Creat Clear Calc 43.67, Est GFR (MDRD) Af Amer 60, Est GFR (MDRD) Non-Af 50 L, BUN/Creatinine Ratio 30.3 H, Glucose 83, Calcium 8.4 L Current Medications Acetaminophen (Tylenol) 650 mg PO Q6H PRN PRN PRN Reason: Mild Pain (1-3)/Temp > 100.7 F Aspirin (Aspirin, Baby) 81 mg PO DAILY@0800 [facility] Balsalazide (Balsalazide Disodium) 3,000 mg PO BID [facility] Last Admin: 09/14/17 09:33 Dose: 3,000 mg Bupropion HCl (Wellbutrin Xl) 150 mg PO DAILY [facility] Last Admin: 09/14/17 09:36 Dose: 150 mg Carvedilol (Coreg) 6.25 mg PO BID [facility] Last Admin: 09/14/17 09:35 Dose: 6.25 mg Furosemide (Lasix) 40 mg IV BID@1000,1800 [facility] Last Admin: 09/14/17 09:38 Dose: 40 mg Heparin Sodium (Porcine) (Heparin Na) 5,000 unit SC Q12 [facility] Last Admin: 09/14/17 09:38 Dose: 5,000 u Sodium Chloride () 1,000 mls @ 15 mls/hr IV .Q48H [facility] PRN Reason: KVO Last Admin: 09/13/17 06:17 Dose: 15 mls/hr Lisinopril (Zestril) 5 mg PO BID [facility] Last Admin: 09/14/17 09:37 Dose: 5 mg Loratadine (Claritin) 5 mg PO DAILY [facility] Last Admin: 09/14/17 09:34 Dose: 5 mg Magnesium Hydroxide (Milk Of Magnesia) 30 ml PO DAILY PRN PRN Reason: Constipation Montelukast Sodium (Singulair) 10 mg PO DAILY [facility] Last Admin: 09/14/17 09:36 Dose: 10 mg [facility]it[facility] ([facility]) [facility] Last Admin: 09/14/17 09:32 Dose: 1 tablet Paroxetine HCl (Paxil) 30 mg PO DAILY [facility] Last Admin: 09/14/17 09:35 Dose: 30 mg Psyllium Hydrophilic Mucilloid (Metamucil) 1 packet PO DAILY PRN PRN PRN Reason: CONSTIPATION Sodium Chloride () 5 - 30 ml IV UD PRN PRN Reason: SALINE FLUSH Last Admin: 09/14/17 09:39 Dose: 10 ml Medical Necessity - Tobacco Use Smoking Status: Never smoker Tobacco Use: Non-smoker Assessment/Plan 56 year old F with PMHx childhood asthma, environmental allergies who comes in with complaints of shortness of breath ongoing for a month. Recent treatment for pneumonia about 2 weeks ago. 1. Acute systolic CHF, newly diagnosed, status post cardiac cath, findings including non-obstructive lesions, diuresing, improving, remains on Lasix, started on carvedilol, NICOLASA inhibitor, will continue with strict I's and O's, daily weights 2. Asthma/environmental allergies, continue Rema, DuoNeb's as needed 3. Leukocytosis likely secondary to steroid use/stress, improving 4. MELANIE, baseline creatinine is 1.09, admitting creatinine is 1.31, further improving, will continue to monitor 5. Ulcerative colitis, currently going off an acute flare, on p.o. prednisone(2 more days to end current steroid course), continue on Balsalazide 6. Anxiety/depression, on Wellbutrin and Paxil 7. DVT prophylaxis with Lovenox subcu Code Visit Inpatient E&M: 22422 Subs Hosp L2
[2017-09-15 02:59] VITALS: PULSE 78
[2017-09-15 03:30] VITALS: BP 124/82; PULSE 78; RESP 16; TEMP 36.4; O2SAT 98
[2017-09-15 06:33] LABS: Absolute Lymphocyte Count 2.36 X10^3/ul (0.83-4.51); Absolute Neutrophil Count 11.9 X10^3/uL (2.0-7.7); Basophil# 0.01 X10^3/uL; Basophil% 0.1 % (0-1); Eosinophil# 0.03 X10^3/uL; Eosinophils% 0.2 % (0-5); Hematocrit 39.1 % (37-47); Hemoglobin 11.8 g/dl (12.0-15.0); Lymphocyte # 2.36 X10^3/ul (4.0); Lymphocyte % 15.4 % (19-41); Mean Corp Hgb Conc 30.2 g/gl (32-36); Mean Corpuscular Hgb 22.9 pg (27.0-32.0); Mean Corpuscular Volume 75.9 fL (81-99); Mean Platelet Vol. 10.1 fl (6.2-12.0); Monocyte# 0.91 X10^3/uL; Neutrophil # 11.94 X10^3/uL (2.7-7.7); Neutrophil % 78.1 % (47-70); Platelet Count 366 K/mm3 (150-450); RBC Distribution Width CV 17.8 % (11.6-14.6); RBC Distribution Width SD 49.9 fl (35.1-43.9); Red Blood Count 5.15 M/mm3 (4.2-5.4); White Blood Count 15.3 K/mm3 (4.4-11.0)
[2017-09-15 06:48] LABS: Anion Gap 10 (5-15); BUN 41 mg/dL (7-18); BUN/Creat Ratio 29.3 RATIO (10-20); Calcium,Total 8.8 mg/dL (8.5-10.1); Chloride 102 mmol/L (98-107); EST Glomerular Filtration Rate 41 mL/min (>60); Est Glom Filt Rate - Afr Amer 50 mL/min (>60); Estimated Creatinine Clearance 37.12 ml/min; Glucose 160 mg/dL (74-106); Potassium 3.6 mmol/L (3.5-5.1); Sodium Level 139 mmol/L (136-145)
[2017-09-15 07:00] VITALS: O2SAT 98
[2017-09-15 07:02] LABS: POSITIVE COUNT NO; POSITIVE DIFFERENTIAL NO; POSITIVE MORPHOLOGY NO
[2017-09-15 07:20] VITALS: PULSE 82
[2017-09-15 10:15] VITALS: BP 130/80; PULSE 81; RESP 18; TEMP 36.1; O2SAT 95
--- NOTE | 2017-09-15 10:26 | PN.CARD_ITS ---
Subjectve: The patient is awake and alert. She has been up out of bed. She has had minimal ambulation in the hallway. She denies any chest discomfort or difficulty breathing at rest or with her ambulation thus far. Objective: Vital Signs Temp Pulse Resp BP Pulse Ox 97.0 F L 81 18 130/80 H 95 09/15/17 10:15 09/15/17 10:15 09/15/17 10:15 09/15/17 10:15 09/15/17 10:15 Oxygen Flow Rate (L/min) 2 Oxygen Delivery Method Room Air Weight: 195 lb 5.273 oz Body Mass Index (BMI) 37.0 Intake and Output for Last 24 Hours 09/13/17 09/14/17 09/15/17 23:59 23:59 23:59 Intake Total 970 / 970 1390 / 1390 Output Total 4975 / 4975 1750 / 1750 600 / 600 Balance -4005 / -4005 -360 / -360 -600 / -600 General: Awake, Alert, Oriented x 3, Cooperative, No Acute Distress HEENT: Atraumatic, Normocephalic, PERRL, EOMI, Sclera Non Icteric Oral: Moist Mucosa Neck: Supple, Good ROM, No JVD Lungs: Clear to auscultation Cardiovascular: Regular Rhythm, Normal S1, Normal S2 Vascular: No Carotid Bruits Abdomen: Bowel Sounds Present, Soft, Non Tender Extremities: No Cyanosis, No Clubbing, No edema Neurological: No Focal Motor or Sensory Deficit Psych/Mental Status: Appropriate, Normal Affect 09/15/17 05:35: WBC 15.3 H, RBC 5.15, Hgb 11.8 L, Hct 39.1, MCV 75.9 L, MCH 22.9 L, MCHC 30.2 L, RDW 17.8 H, RDW Differential 49.9 H, Plt Count 366, MPV 10.1, Immature Gran % (Auto) 0.200, Neut % (Auto) 78.1 H, Lymph % (Auto) 15.4 L , [place] % (Auto) 6.0, Eos % (Auto) 0.2, Baso % (Auto) 0.1, Absolute Neuts (auto) 11.9 H, Total Counted Not Reportable 09/15/17 05:35: Sodium 139, Potassium 3.6, Chloride 102, Carbon Dioxide 27.0, Anion Gap 10, BUN 41 H, Creatinine 1.40 H, Est GFR (MDRD) Af Amer 50 L, Est GFR (MDRD) Non-Af 41 L, BUN/Creatinine Ratio 29.3 H, Glucose 160 H, Calcium 8.8 Rhythm: Sinus rhythm Medical Necessity - Tobacco Use Smoking Status: Never smoker Tobacco Use: Non-smoker Assessment/Plan 1. Systolic CHF: Acute The patient appears to be symptomatically improved. She is continuing medical management. This includes a combination of beta-blockers, diuretics, and afterload reducing agents. At the present time an attempt will be made to advance her beta-raymond therapy. Also based upon improvement in her volume status her IV diuretics will be altered to oral diuretics. 2. Non-CAD related cardiomyopathy The patient has been diagnosed with a non-CAD related cardiomyopathy. She will continue medical management. This includes medications as noted above. She will eventually need follow-up echocardiographic studies to monitor her left ventricular wall motion and systolic function. If over time her overall LV systolic function does not improve then she will need to be considered for primary prevention ICD placement. 3. Mitral valve disorder/regurgitation She does have underlying MR. At the present time she would continue medical management for her aforementioned conditions. Her mitral valve anatomy and physiology will be followed over time with echocardiographic studies. Comment: The above was discussed and reviewed with the patient. This note was generated with [employer] dictation software. It may contain incorrect words, spelling, and punctuation that were not noted in checking the note before signing.
[2017-09-15] MEDS: BALSALAZIDE DISODIUM 750 MG CAPSULE 3000 MG PO (10:38)
[2017-09-15] MEDS: Multivitamins,Therapeutic Tablet 1 TABLET PO (10:39)
[2017-09-15] MEDS: Montelukast 10 MG Tablet PO (10:40)
[2017-09-15] MEDS: buPROPion (XL) 150 MG TABLET.XL PO (10:41)
[2017-09-15] MEDS: Lisinopril 5 MG Tablet PO (10:41)
[2017-09-15] MEDS: Loratadine 10 MG Tablet 5 MG PO (10:42)
[2017-09-15] MEDS: Aspirin 81 MG TAB.CHEW PO (10:48)
[2017-09-15] MEDS: Carvedilol 12.5 MG Tablet PO (10:51)
--- NOTE | 2017-09-15 10:51 | DCINST_ITS ---
- Discharge Diagnoses Current Active Problems: Current Active and Chronic Problems Asthma (Chronic) Multiple environmental allergies (Chronic) Ulcerative colitis (Chronic) Anxiety and depression (Chronic) You will use the following diet at home:: Cardiac Your food should be the consistency of: Regular Your liquids should be the consistency of: Regular/Thin Discharge Activity: Return to Normal Activity Additional Instructions: Continue to follow a low salt, low fat diet, heart healthy diet. Keep active. 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 You will need repeat blood work done in 3 days. Take note of your medications. Follow the heart failure discharge instructions. Allergies/Adverse Reactions: Allergies amoxicillin Adverse Reaction (Verified 09/12/17 07:06) Diarrhea erythromycin base Adverse Reaction (Verified 09/12/17 07:06) Diarrhea Medications to take at Discharge Balsalazide Disodium [Colazal] 2,250 mg PO BID 07/28/14 Multivitamins,Therapeutic [Multivitamin] 1 tablet PO DAILY 07/28/14 [place]-3 Fatty Acids [Fish Oil] 500 mg PO DAILY 07/28/14 Paroxetine HCl [Paxil] 30 mg PO DAILY 07/28/14 Bupropion HCl [Wellbutrin Sr] 150 mg PO DAILY 08/31/17 Montelukast Sodium [Singulair] 10 mg PO DAILY 08/31/17 Albuterol Inhaler [Ventolin Hfa] 1 - 2 puff INHALATION Q4H PRN PRN 09/10/17 Fexofenadine HCl [Rema Allergy] 60 mg PO DAILY 09/12/17 Aspirin [Aspirin, Baby] 81 mg PO DAILY@0800 #30 tab.chew 09/15/17 Carvedilol [Coreg (Beta Vik)] 12.5 mg PO BID #60 tab 09/15/17 Furosemide [Lasix] 40 mg PO BID@1000,1800 #60 tab 09/15/17 Lisinopril [Zestril] 5 mg PO BID #60 tab 09/15/17 The following prescriptions were given: Aspirin [Aspirin, Baby] 81 mg PO DAILY@0800 #30 tab.chew Furosemide [Lasix] 40 mg PO BID@1000,1800 #60 tab Carvedilol [Coreg (Beta Vik)] 12.5 mg PO BID #60 tab Lisinopril [Zestril] 5 mg PO BID #60 tab Primary Care Physician: Ban Gong MD [Primary Care Provider] - Please follow up with your Primary Care Physician in: in 1-2 weeks Please Follow Up With: Ryan Boyer MD When: in 2 weeks Proposed Discharge Date: 09/15/17
--- NOTE | 2017-09-15 10:51 | PCM.DC.SUM ---
Discharge Date and Diagnosis Date of Admission: 09/12/17 Date of Discharge: 09/15/17 - Primary Discharge Diagnosis Acute systolic CHF, newly diagnosed - Secondary Discharge Diagnosis Chronic Problems Asthma (Chronic) Multiple environmental allergies (Chronic) Ulcerative colitis (Chronic) Anxiety and depression (Chronic) Hospital Course and Treatment Imaging Results: Clinical Impression(s) from Imaging Studies Chest X-Ray 09/12/17 07:26 IMPRESSION: Minimal left-sided atelectasis with small left pleural effusion. No definite right pleural effusion is seen. Electronically Signed: Tex DO Juan at 8:50 EDT Tel , Service support , None Operations: None Procedures: 2-D Echocardiogram Summary of Care Provided: 56 year old F with PMHx childhood asthma, environmental allergies admitted with shortness of breath ongoing for a month. She was recently seen in the ED on 08/31/17 and treated for pneumonia. 1. Acute systolic CHF, EF 10-15%, newly diagnosed, status post cardiac cath:findings were non-obstructive lesions. She was managed on IV Lasix, with improvement, started on carvedilol, NICOLASA inhibitor. She will follow-up with cardiology within 2 weeks. Patient may need AICD if repeat echo shows not much improvement. 2. Asthma/environmental allergies, on Rema 3. Leukocytosis likely secondary to steroid use/stress, resolving at time of discharge 4. MELANIE, baseline creatinine is 1.09, creatinine appears to be stable, needs to be monitored in the outpatient 5. Ulcerative colitis, currently going off an acute flare, completed steroid in this admission, on Balsalazide, follows with Dr. Blanco in the outpatient 6. Anxiety/depression, on Wellbutrin and Paxil Discharge Diet: No Restrictions Discharge Activity: Return to Normal Activity Home Medications: Medications to take at Discharge Balsalazide Disodium [Colazal] 2,250 mg PO BID 07/28/14 Multivitamins,Therapeutic [Multivitamin] 1 tablet PO DAILY 07/28/14 [place] [facility]-3 Fatty Acids [Fish Oil] 500 mg PO DAILY 07/28/14 Paroxetine HCl [Paxil] 30 mg PO DAILY 07/28/14 Bupropion HCl [Wellbutrin Sr] 150 mg PO DAILY 08/31/17 Montelukast Sodium [Singulair] 10 mg PO DAILY 08/31/17 Albuterol Inhaler [Ventolin Hfa] 1 - 2 puff INHALATION Q4H PRN PRN 09/10/17 Fexofenadine HCl [Rema Allergy] 60 mg PO DAILY 09/12/17 Aspirin [Aspirin, Baby] 81 mg PO DAILY@0800 #30 tab.chew 09/15/17 Carvedilol [Coreg (Beta Vik)] 12.5 mg PO BID #60 tab 09/15/17 Furosemide [Lasix] 40 mg PO BID@1000,1800 #60 tab 09/15/17 Lisinopril [Zestril] 5 mg PO BID #60 tab 09/15/17 Following Prescrptions Were Given to Patient: Aspirin [Aspirin, Baby] 81 mg PO DAILY@0800 #30 tab.chew Furosemide [Lasix] 40 mg PO BID@1000,1800 #60 tab Carvedilol [Coreg (Beta Vik)] 12.5 mg PO BID #60 tab Lisinopril [Zestril] 5 mg PO BID #60 tab Primary Care Physician: Ban Gong MD [Primary Care Provider] - Please follow up with your Primary Care Physician in: in 1-2 weeks Please Follow Up With: Ryan Boeyr MD When: in 2 weeks Disposition: Home Minutes spent on discharge:: 45 Patient Condition:: Stable Medical Necessity - Tobacco Use Smoking Status: Never smoker Tobacco Use: Non-smoker Meaningful Use Info Meaningful Use Diagnoses (Choose all that apply): CHF - CHF NICOLASA/ARB ordered at discharge?: Yes Documented LVEF (%): 10 Code Visit Inpatient E&M: 89319 Disch Hosp
[2017-09-15] MEDS: Furosemide 20 MG/2 ML VIAL IV (10:53)
[2017-09-15] MEDS: 0.9% NaCl Peripheral Flush Adult/Peds IV (10:53)
== END 2017-09-15 10:10 | disposition home or self-care (01) | DRG 287 ==
LOC: ED 07:44 → PCU 09:23
PROVIDERS: Internal Medicine Cardiovascular Disease; Admitting Provider Internal Medicine; Emergency Provider Emergency Medicine; Family Provider Internal Medicine; PCP Internal Medicine; Visit Provider Internal Medicine
DX: I50.21 Acute systolic (congestive) heart failure (principal); N17.9 Acute kidney failure, unspecified; K51.90 Ulcerative colitis, unspecified, without complications; J45.909 Unspecified asthma, uncomplicated; F41.9 Anxiety disorder, unspecified; F32.9 Major depressive disorder, single episode, unspecified; Z79.899 Other long term (current) drug therapy; T38.0X5A Adverse effect of glucocorticoids and synthetic analogues, initial encounter; D72.829 Elevated white blood cell count, unspecified; I27.20 Pulmonary hypertension, unspecified
CPT/HCPCS: 36415; 71046; 80048; 83735; 83880; 84484; 85025; 85027; 85610; 85730; 93005; 93306; 93458; 94640; 99152; 99153; 99285; J7030; Q9967; A4216; C1769; C1894; J1940

== ENCOUNTER → 2017-09-27 15:04 | Outpatient (CLI) | payer OTHER, SELFPAY ==
[2017-09-27 16:51] LABS: Anion Gap 8 (5-15); BUN 38 mg/dL (7-18); Calcium,Total 9.1 mg/dL (8.5-10.1); Chloride 104 mmol/L (98-107); Creatinine, Serum 1.46 mg/dL (0.55-1.02); EST Glomerular Filtration Rate 39 mL/min (>60); Est Glom Filt Rate - Afr Amer 48 mL/min (>60); Glucose 70 mg/dL (74-106); Magnesium 2.6 mg/dL (1.6-2.6); Potassium 4.3 mmol/L (3.5-5.1); Sodium Level 139 mmol/L (136-145)
== END ==
PROVIDERS: Family Provider Internal Medicine; PCP Internal Medicine; Visit Provider Internal Medicine Cardiovascular Disease
DX: I50.20 Unspecified systolic (congestive) heart failure (principal)
CPT/HCPCS: 36415; 80048; 83735

== ENCOUNTER → 2017-12-30 10:34 | Outpatient (CLI) | payer OTHER, SELFPAY ==
--- NOTE | 2017-12-30 10:42 | ECHOD_ITS ---
Reason For Study: Dyspnea/SOB Procedure This was a 2D Doppler, Color Flow transthoracic echocardiogram. Exam performed in department. Left Ventricle Normal LV size. The estimated ejection fraction is 25 %. Transmitral diastolic flow velocities suggest mild (stage 1) diastolic dysfunction (reversed pattern). Compared to previous study, the left ventricular systolic function has improved.. There is moderate to severe global hypokinesis of the left ventricle. Right Ventricle Normal RV size. Normal systolic function. Atria Normal left atrium. Normal right atrium. Mitral Valve Normal mitral valve. Trivial eccentric mitral valve insufficiency. Tricuspid Valve Normal tricuspid valve. Unable to estimate RV systolic pressure due to inadequate jet, pulmonary artery pressure probably normal. Aortic Valve Normal aortic valve. Trisinus/trileaflet aortic valve. Pulmonic Valve Normal pulmonic valve. Trivial pulmonic valve insufficiency. Great Vessels Normal aortic root. The pulmonary artery is normal size. Normal inferior vena cava. Pericardium/Pleural No pericardial effusion. MMode/2D Measurements & Calculations LVIDd: 5.0 cm IVSd: 0.96 cm Ao root diam: 3.1 cm LVIDs: 4.2 cm LVPWd: 0.62 cm LA dimension: 2.4 cm RVDd: 3.5 cm FS: 16.2 % LAV(MOD-bp): 36.5 ml LVAd ap4: 33.8 cm2 SV(MOD-sp4): 40.8 ml LAV(MOD-bp) Indexed: 19.9 ml/m2 EDV(MOD-sp4): 105.8 ml LAV(MOD-sp2): 33.5 ml EDV(sp4-el): 111.6 ml LAV(MOD-sp4): 32.5 ml LVAs ap4: 25.2 cm2 ESV(MOD-sp4): 65.0 ml ESV(sp4-el): 67.2 ml EF(MOD-sp4): 38.6 % EF(sp4-el): 39.8 % SV(sp4-el): 44.4 ml LA A4 area: 14.9 cm2 RA A4 area: 12.8 cm2 Time Measurements MV dec time: 0.31 sec Doppler Measurements & Calculations MV E max adarsh: 47.6 cm/sec Lat Peak E' Adarsh: 6.6 cm/sec Med Peak E' Adarsh: 5.9 cm/sec MV A max adarsh: 69.6 cm/sec E/E' lat: 7.2 E/E' med: 8.0 MV E/A: 0.68 MV V2 max: 84.1 cm/sec MV P1/2t max adarsh: 63.6 cm/sec Ao V2 max: 106.8 cm/sec MV max P.8 mmHg MV P1/2t: 134.2 msec Ao max P.6 mmHg MV V2 mean: 45.7 cm/sec MV dec slope: 138.7 cm/sec2 Ao V2 mean: 71.9 cm/sec MV mean P.96 mmHg MVA(P1/2t): 1.6 cm2 Ao mean P.4 mmHg MV V2 VTI: 25.6 cm Ao V2 VTI: 17.2 cm LV V1 max: 73.6 cm/sec PA V2 max: 73.1 cm/sec LV V1 max P.2 mmHg LV V1 mean P.0 mmHg LV V1 mean: 45.8 cm/sec LV V1 VTI: 12.9 cm Interpretation Summary Normal LV size. The estimated ejection fraction is 25 %. There is moderate to severe global hypokinesis of the left ventricle. Transmitral diastolic flow velocities suggest mild (stage 1) diastolic dysfunction (reversed pattern). Compared to previous study, the left ventricular systolic function has improved.. Ordering Physician: Ryan Boyer Referring Physician: Ban Gong Performed By: Sergey Yepez RCS
== END ==
PROVIDERS: Family Provider Internal Medicine; PCP Internal Medicine; Referring Provider Internal Medicine Cardiovascular Disease; Visit Provider Internal Medicine Cardiovascular Disease
DX: I42.8 Other cardiomyopathies (principal)
CPT/HCPCS: 93306

== ENCOUNTER → 2018-01-28 16:53 | Outpatient (CLI) | payer OTHER, SELFPAY ==
[2018-01-28 17:46] LABS: Hematocrit 38.3 % (37-47); Hemoglobin 13.4 g/dl (12.0-15.0); Mean Corpuscular Hgb 28.6 pg (27.0-32.0); Mean Corpuscular Volume 81.8 fL (81-99); Platelet Count 186 K/mm3 (150-450); RBC Distribution Width CV 14.5 % (11.6-14.6); RBC Distribution Width SD 41.5 fl (35.1-43.9); Red Blood Count 4.68 M/mm3 (4.2-5.4); White Blood Count 6.6 K/mm3 (4.4-11.0)
[2018-01-28 18:04] LABS: Iron 70 ug/dL (50-170)
[2018-01-28 18:07] LABS: Scan Indicated on CBC? Y/N NO
== END ==
PROVIDERS: Family Provider Internal Medicine; PCP Internal Medicine; Referring Provider Internal Medicine Gastroenterology; Visit Provider Internal Medicine Gastroenterology
DX: K52.9 Noninfective gastroenteritis and colitis, unspecified (principal); D64.9 Anemia, unspecified
CPT/HCPCS: 36415; 83540; 85027; 86140

== ENCOUNTER → 2018-02-11 09:21 | Outpatient (CLI) | payer OTHER, SELFPAY ==
--- NOTE | 2018-02-11 10:41 | CR.HP_ITS ---
CR - History & Physical - General Arrival date:: 02/11/18 Arrival time:: 09:30 Date of Referral:: 02/05/18 Date of CR Evaluation:: 02/11/18 Referring Physician: rahda Primary Diagnosis: Nonischemic cardiomyopathy, left ventricular dysfunction, HF - History of Present Cardiac Event Onset Date: Enter Onset Date of cardiac illnesses in Comment field below Current stable Angina Pectoris:: No Acute Myocardial Infarction within 12 months:: No Coronary Artery Bypass Graft:: No Heart valve replacement or repair:: No PTCA or coronary stenting:: No Heart or Heart-Lung Transplant:: No Heart Failure EF <35%:: Yes Type of Symptoms:: breathing; shortness of breath, emergency room visits and Nurse practitioner, finally admitted and diagnosed with HF Interventions with present event:: echocardiogram and heart cath. - Medications Home Medications: Ambulatory Orders Medication Instructions Recorded Balsalazide Disodium [Colazal] 2,250 mg PO BID 07/28/14 Multivitamins,Therapeutic 1 tab PO DAILY 07/28/14 [Multivitamin] [place]-3 Fatty Acids [Fish Oil] 500 mg PO DAILY 07/28/14 Paroxetine HCl [Paxil] 30 mg PO DAILY 07/28/14 Bupropion HCl [Wellbutrin Sr] 150 mg PO DAILY 08/31/17 Albuterol Inhaler [Ventolin Hfa] 1 - 2 puff INHALATION Q4H PRN PRN 09/10/17 carvedilol 25 mg tablet 25 mg PO BID #180 tab 09/27/17 furosemide 40 mg tablet 40 mg PO BID@1000,1800 #60 tab 10/14/17 ropinirole 0.25 mg tablet 0.25 mg PO QHS 01/02/18 lisinopril 5 mg tablet 5 mg PO BID tab 02/10/18 - Allergies Allergies/Adverse Reactions: Allergies amoxicillin Adverse Reaction (Verified 01/02/18 16:18) Diarrhea erythromycin base Adverse Reaction (Verified 01/02/18 16:18) Diarrhea - Sleep Disorder Evaluation Hx of Sleep Apnea: No Do you snore loudly (louder than talking or can be heard through closed doors)?: Yes Do you often feel tired/ fatigued/ sleepy during daytime?: No - wiht the natresto medication made me very fatigued/tired. Has anyone observed you stop breathing during sleep?: No History of Hypertension (for STOP score): Yes STOP Results: Positive Advanced Directives - Advanced Directives Power of Cash Register Mechanic: No Living Will: No Advance Directives Information Provided: Yes Advance Directives on File: No DNR Order?:: No - MOLST See MOLST form: No Past Medical History - Past Medical Illness Medical History: Past Medical History (Last Reviewed 01/02/18 @ 16:35 by Ryan Boyer MD) Pleural effusion, left (Acute) J90 small per CXR 09/12/17 Systolic congestive heart failure with reduced left ventricular function, NYHA class 3 (Chronic) I50.20 Per heart cath 09/13/2017 Nonischemic cardiomyopathy (Chronic) Onset Date: 09/13/17 I42.8 EF 10%, normal coronaries, global hypokinesis per LHC 09/13/2017 Nonrheumatic tricuspid (valve) insufficiency (Chronic) I36.1 Mild (1+) per echo 09/12/17 Nonrheumatic mitral (valve) insufficiency (Chronic) I34.0 Mild (1+) per echo 09/12/17, RVSP 40 mmhg per echo 09/13/17 Asthma (Chronic) J45.909 Multiple environmental allergies (Chronic) Z91.09 Ulcerative colitis (Chronic) K51.90 Anxiety and depression (Chronic) F41.9, F32.9 - Past Surgical History Surgical History: Past Surgical History (Last Reviewed 01/02/18 @ 16:35 by Ryan Boyer MD) History of left heart catheterization (Chronic) Onset Date: 09/13/[address] Boyer @ [facility]: Normal coronaries, global hypokinesis, EF 10% Surgical History: tonsillectomy, - - tubal ligation, s/p uterine ablation of fibroids - Family History Summary Family History: Family History (Last Reviewed 01/02/18 @ 16:35 by Ryan Boyer MD) Father Hypertension Myocardial infarction Social History - Smoking History Smoking Status: Never smoker Hx Tobacco Use: No Hx Smoking Exposure: No - Alcohol Use Alcohol Usage: Yes - occasional; but not much of that - Substance Abuse Hx Substance Use: No - Occupation Occupation (List type of work in comments):: Unemployed - Hobbies, Recreation, Social Activities Hobbies: Reading, Walking, Other Recreational Activities: I am able to engage in all my recreational activities - can do about everything, just need to regain stamina. Social Environment - Status Marital Status: - Current Living Arrangements Living Environment:: Family - Children How many children do you have?: 2 Do any of your children live nearby?: Yes - Safety Do you feel safe in your surroundings?: Yes - Assistance Do you need any assistance at home?: none Review of Systems - Review of Systems Hints: Right click = Denies (Slash). Left click = Reports ([place]) Review of Present Symptoms: Reports: Shortness of Breath with Exertion - stairs, inclines, Angina - slight every now and then, Fatigue, Appetite - Normal, Appetite - Special Diet - no processed foods, low fat low sodium diet., Sleep - Normal. Denies: Shortness of Breath at Rest, Dizziness/Lightheadedness, Heart Arrhythmia/Irregularities, Sexual Changes - Pain Is Patient Pain Free?: Yes Pain Location: none Risk Factor Assessment - Chief Complaint Chief Complaint: Patient is a 57 year old female patient of Dr. Boyer who presents to cardiac rehab today following recent August hospitalization for heart failure, left ventricular dysfunction, non-ischemic cardiomyopathy with an EF of <15%. - Vital Signs Temperature: 98.7 F Respiratory Rate: 14 Pulse Ox: 97 Blood Pressure: 108/62 Nailbeds:: [pink] - Pulse Pulse Rate: 61 Pulse Rhythm: Regular - Hypertension Blood Pressure Sitting - Left Arm: 108/62 - Stress Stress: Recent - dealing wiht colitis adn new onset diagnoses - Diabetes Nutrition Referral for Diabetes: No - Obesity Height: 5 ft 3.5 in Weight:: 183 lb 8 oz Weight in Pounds: 183.5 lbs Weight Source: Standing Scale Body Mass Index (BMI): 32.0 Nutritional Referral for Obesity: Yes - Patient is interested in diet and weight loss/colitis. - Physical Inactivity Physical Inactivity: None - Risk Stratification Risk Guidelines: Lowest Risk: Risk Factor for Smoking, Risk Factor for Dyslip idemia, Risk Factor for Diabetes, Risk Factor for Hypertension, Risk Factor for Sedentary Lifestyle, Risk Factor for Depression, Highest Risk: Risk Factor for Obesity - For Smoking Smoking Risk Guidelines: Smoking Low Risk: None or quit greater than 6 months ago. Smoking Moderate Risk: Smoker or quit 6 months or less ago. Smoking High Risk: Smoker - For Dyslipidemia Dyslipidemia Risk Guidelines: Low Risk: Moderate Risk: High Risk: 15-25% fat 25.1-29% fat >/= 30% fat. <7% sat fat 7-9% sat fat >9% sat fat. <150 mg chol 150-299 mg chol >/= 300 mg chol. LDL <100 LDL 100-129 LDL >/= 130. Chol/HDL ratio <5.0 Chol/HDL ratio 5.0-6.0 Chol/HDL ratio >6.0. Triglycerides <100 Triglycerides 100- 149 Triglycerides >/= 150 - For Diabetes Mellitus Diabetes Risk Guidelines: Diabetes Low Risk: HgA1c <6.5% and/or FBG <120. Diabetes Moderate Risk: HgA1c 6.6-7.9% and/or FBG 120-180. Diabetes High Risk: HgA1c >/= 8% and/or FBG >180 - For Obesity/Overweight Obesity/Overweight Risk Guidelines: Obesity Low Risk: BMI <25.0. Obesity Moderate Risk: BMI 25-29.9. Obesity High Risk: BMI >/= 30.0 - For Hypertension Hypertension Risk Guidelines: Hypertension Low Risk: Systolic <120 and Diastolic <80. Hypertension Moderate Risk: Systolic 120-139 and Diastolic 80-89. Hypertension High Risk: Systolic >/= 140 and Diastolic >/= 90 - For Sedentary Lifestyle Sedentary Lifestyle Risk Guidelines: Sedentary Lifestyle Low Risk: >/= 1,500 kcal/week. Sedentary Lifestyle Moderate Risk: 700-1,499 kcal/week. Sedentary Lifestyle High Risk: < 700 kcal/week - For Depression Depression Risk Guidelines: Depression Low Risk: Not clinically depressed. Depression Moderate Risk: Mildly depressed. Depression High Risk: Clinically depressed - Family History Family History: Family History (Last Reviewed 01/02/18 @ 16:35 by Ryan Boyer MD) Father Hypertension Myocardial infarction Motivation - Motivation to Participate On a scale of 1 to 10, how prepared are you to commit to attending program?: 10 - commited to my health. What do you see as barriers to successfully being able to complete the program?: only thing at this point would be the colitis or sickness. What do you see as the benefits of succesfully completing the program? In other words, what do you hope to get out of participating in the program?: building stamina, feel better, taking more control over my health. Are there issues you are dealing with that will interfere with completing the program?: Colitis. Do you have a spouse or signficant other, family or friends who will help support you to complete the program?: yes.
[2018-02-11 10:54] VITALS: BP 108/62; PULSE 61; RESP 14; TEMP 37.1; O2SAT 97; BMI 32.0
--- NOTE | 2018-02-11 13:02 | PCM.CR.ITP ---
General Information - General Information Admitting Diagnosis: Non ischemic cardiomyopathy Systolic congestive heart failure with reduced left ventricular function NYHA Class III - Education/Goals Barriers to Learning: None Individual Counseling: Initial Assessment: Overweight/Obesity, Sedentary Lifestyle Cardiac Rehabilitation Goals: 1. Maintain the individual as the primary focus of care. 2. To improve the patient's quality of life. 3. Identification of cardiac risk factors and provide cardiac risk factor management. 4. Enhance the psychosocial status of the patient. 5. Reconditioning enough to allow the patient to resume customary activities. 6. Control symptoms of cardiac disease Scale for measuring improvement of personal goals: Enter appropriate number in Comments. 2 = Unchanged. 3 = Slightly Better. 4 = Moderate Improvement. 5 = Met my Goal Personal Goals: Initial Assessment: Improve management of stress and emotions, Improve energy level, Participate in home exercise program, Improve muscle strength and endurance, Improve diet and eating habits (eat healthier), Control risk factors (learn risk factor modification) Exercise - Initial Assessment - Visit Date of Eval: 02/11/18 - Start 02/12/18 Session #:: 0 - Stages of Change Stages of Change:: Action - Exercise Prescription Mode:: Treadmill, Rower, Airdyne, NuStep Angina with exercise?: No Target Heart Rate:: Rest HR + 15 PM - Hypertension Do any of the following apply?: No Resting Blood Pressure:: 108/62 - Intervention Home Exercise/Activity Goal:: Sitting Time <3 hrs/day - Education Goals:: Warm-up, RPE CECILIO Scale, S/S, Safe Exercise, Self-Monitoring - Exercise Program Goals Exercise Program Goals: Aerobic Activity >30 min Nutrition - Initial Assessment - Program Goals Nutrition Program Goals: LDL <70. Total Cholesterol <200. HDL >45. Triglycerides <150. HgbA1C <7%. BMI <25 - Visit Date of Assessment:: 02/11/18 - Stages of Change Stages of Change:: Action - Diabetes Diabetes:: No - Weight Management Height: 5 ft 3.5 in Weight:: 186 lb Body Fat %:: 32.9 - Intervention Referral to dietitian:: Yes - Patient is interested in diet and weight loss Referral to Diabetic Clinic:: No Will attend diet classes:: Yes - Education Gave educational materials for:: Healthy eating Tobacco - Initial Assessment - Program Goals Tobacco Program Goals: Complete smoking cessation. Attend education classes. Improve Knowledge Test score - Stage of Change Stages of Change:: Action - Learning Barriers Learning Barriers: Ready to Learn - Family Support Do you have family support?: Yes - Tobacco Use Tobacco Use: Non-smoker Do you use smokeless tobacco?: No - Intervention Smoking Cessation Referral:: No Education Schedule Given:: Yes - Education Gave educational material for:: Coronary artery disease, Risk factors, Sexuality, Medical compliance, Cardiac A&P, Angina signs & symptoms Psychosocial - Initial Assess - Target Goals Target Goals: Assess presence or absence of depression. Using a valid screening tool, maximizes coping skills. Positive support system - Stages of Change Stages of Change:: Action - Psychosocial Test Tool Used:: HANDS Depression Questionnaire - Intervention PS - Interventions: Yes Attend Stress Management Classes, No Referral to Mental Health, No Referral to [facility] Case Management, No Referral to Physician, No Uses Stress Management Skills - Education Gave educational materials for:: Coping techniques, Signs & symptoms of depression, Stress management, Relaxation techniques - Patient/Program Goal Preventative Medication(s):: Aspirin, Statin/lipid - Assistive Devices Assistive Devices:: None Fall Risk Assessed:: Yes Patient Health Questionnaire Initial Assessment 1. Little interest or pleasure in doing things: Several days 2. Feeling down, depressed, or hopeless: Several days 3. Trouble falling or staying asleep, or sleeping too much: Several days 4. Feeling tired or having little energy: Several days 5. Poor appetite or overeating: Not at all 6. Feeling bad about yourself -- or that you are a failure or have let yourself or your family down: Not at all 7. Trouble concentrating on things, such as reading the newspaper or watching television: Not at all 8. Moving or speaking so slowly that other people could have noticed. Or the opposite - being so fidgety or restless that you have been moving around a lot more than usual: Not at all 9. Thoughts that you would be better off , or of hurting yourself in some way: Not at all How difficult have these problems made it for you to do your work, take care of things at home, or get along with other people?: Somewhat difficult Total Score: 4 DANGELO-Q SV Test - Statements CAD is a disease of the arteries in the heart: False Examples of risk factors for heart disease: True Angina is chest pain or discomfort: False The benefits of resistance training include: I Don't Know Eating more meat and dairy products: False Anti-platelet medications such as aspirin are important: True The only effective way to manage stress: False An exercise warm-up slowly increases heart rate: I Don't Know Prepared, processed foods usually have high sodium: True Depression is common after a heart attack: True The statin medications lower cholesterol: True To control blood pressure, lower the amount of sodium: I Don't Know If someone gets chest discomfort during walking: False Transfats are partially hydrogenated vegetable oils: I Don't Know Sleep apnea that is not treated increases the risk: False To control cholesterol, one should become a vegetarian: False Someone knows if he/she is exercising at the right level: I Don't Know Diabetes cannot be prevented with exercise & health eating: False Stress is a large risk for heart attack: True A diet that can help lower blood pressure is rich in: True - Total Score Total Correct Responses: 14 Self-Efficacy Initial Assessment We would like to know how confident you are in doing certain activities. Please select your confidence level for:: Select your confidence level for the following using the scale 1-10 where 1 is not at all confident and 10 is totally confident. Your score is the average of all 6 responses. Fatigue: How confident are you that you can keep the fatigue caused by your disease from interfering with the things you want to do? Select Number: 5 Physical Discomfort or Pain: How confident are you that you can keep the physical discomfort or pain of your disease from interfering with the things you want to do? Select Number: 8 Emotional Distress: How confident are you that you can keep the emotional distress caused by your disease from interfering with the things you want to do? Select Number: 7 Other Symptoms or Health Problems: How confident are you that you can keep other symptoms or health problems from interfering with the things you want to do? Select Number: 6 Different Tasks and Activities: How confident are you that you can do the different tasks and activities needed to manage your health condition so as to reduce your need to see a doctor? Select Number: 8 Medication: How confident are you that you can do things other than just taking medication to reduce how much your illness affects your everyday life? Select Number: 7 Total Score:: 6 Nutrition Survey - Nutrition Survey Instructions Scoring Instructions: Scoring is as follows: Yes = 1 points. No = 0 point. Patient score that is >/=12 is considered to be at potential nutritional risk and could benefit from a referral to a registered dietitian. - Nutrition Survey Initial Have you lost >10 lbs over the past 2 months without trying?: No Are you following a special diet at home for diabetes, low fat, or low salt?: Yes Are you interested in meeting with a dietitian for help understanding your diet?: Yes Do you eat less than 3 meals a day?: No Do you eat fatty meats (adam, sausage, ribs, etc), fried foods, desserts, large amounts of salad dressings, margarine, butter, or cheese most days?: No Do you have food allergies? [Enter types in comment field]: No Do you eat in restaurants more than 3 times a week?: No Do you season food with salt, seasoning salt, or garlic salt?: No Do you used canned, boxed, frozen meals, or soups, seasoning packets?: No Total Score:: 2
[2018-02-11 13:09] VITALS: BP 108/62
== END ==
PROVIDERS: Family Provider Internal Medicine; PCP Internal Medicine; Referring Provider Internal Medicine Cardiovascular Disease; Visit Provider Internal Medicine Cardiovascular Disease
DX: I42.8 Other cardiomyopathies (principal); I50.1 Left ventricular failure, unspecified; K52.9 Noninfective gastroenteritis and colitis, unspecified

== ENCOUNTER 2018-02-26 11:30 | Outpatient (RCR) | payer OTHER, SELFPAY | END 2018-02-28 23:59 | LOC: CR 11:30 | PROVIDERS: Family Provider Internal Medicine; PCP Internal Medicine; Referring Provider Internal Medicine Cardiovascular Disease; Visit Provider Internal Medicine Cardiovascular Disease | DX: I50.20 Unspecified systolic (congestive) heart failure (principal); I48.2 Chronic atrial fibrillation | CPT/HCPCS: 93798 ==

== ENCOUNTER 2018-03-28 11:30 | Outpatient (RCR) | payer OTHER, SELFPAY ==
[2018-02-11 10:54] VITALS: BMI 32.0
--- NOTE | 2018-03-17 09:03 | CR.ITP_ITS ---
General Information - General Information Admitting Diagnosis: Non ischemic cardiomyopathy systolic congestive heart fail ure with reduced ventricular function NYHA Class III - Education/Goals Cardiac Rehabilitation Goals: 1. Maintain the individual as the primary focus of care. 2. To improve the patient's quality of life. 3. Identification of cardiac risk factors and provide cardiac risk factor management. 4. Enhance the psychosocial status of the patient. 5. Reconditioning enough to allow the patient to resume customary activities. 6. Control symptoms of cardiac disease Scale for measuring improvement of personal goals: Enter appropriate number in Comments. 2 = Unchanged. 3 = Slightly Better. 4 = Moderate Improvement. 5 = Met my Goal Exercise - 30-day Assessment - Visit Date of Eval: 03/17/18 - Stages of Change Stages of Change:: Action - Exercise Prescription Mode:: Treadmill, Airdyne, NuStep Frequency (x/week): 3 Duration:: 35 METs - Progression: 0.5-1 MET as tolerated: 3.1 Target Heart Rate:: 100-108 Max HR 92 - Hypertension Resting Blood Pressure:: 88/52 Peak Exercise Blood Pressure:: 88/52 Medication Changes:: Yes - decreased carvedilol 12.5 mg BID - Intervention Home Exercise/Activity Goal:: Sitting Time <3 hrs/day - Education Goals:: Warm-up, RPE CECILIO Scale, S/S, Safe Exercise, Self-Monitoring - Exercise Program Goals Exercise Program Goals: Aerobic Activity >30 min, B/P <130/80 Nutrition - 30-Day Assessment - Program Goals Nutrition Program Goals: LDL <70. Total Cholesterol <200. HDL >45. Trigly cerides <150. HgbA1C <7%. BMI <25 - Visit Date of Eval: 03/17/18 - Stages of Change Stages of Change:: Action - Education Attended class for:: Signs & symptoms of hypoglycemia, Signs & symptoms of hyperglycemia, Relate diabetes to coronary artery disease, Healthy eating Tobacco - Initial Assessment - Program Goals Tobacco Program Goals: Complete smoking cessation. Attend education classes. Improve Knowledge Test score - Learning Barriers Learning Barriers: Ready to Learn Tobacco - 30-Day Assessment - Program Goals Tobacco Program Goals: Complete smoking cessation. Attend education classes. Improve Knowledge Test score - Stage of Change Stages of Change:: Action - Learning Barriers Learning Barriers: Participates in education - Family Support Do you have family support?: Yes - Tobacco Use Tobacco Use: Non-smoker - Intervention Smoking Cessation Referral:: No Individual Education/Counseling:: No Education Schedule Given:: Yes - Education Attended class for:: Tobacco triggers, Coronary artery disease, Risk factors, Sexuality, Medical compliance, Cardiac A&P, Angina signs & symptoms Psychosocial - Initial Assess - Target Goals Target Goals: Assess presence or absence of depression. Using a valid screening tool, maximizes coping skills. Positive support system - Psychosocial Test Tool Used:: HANDS Depression Questionnaire - Assistive Devices Fall Risk Assessed:: Yes Psychosocial - 30-Day Assess - Target Goals Target Goals: Assess presence or absence of depression. Using a valid screening tool, maximizes coping skills. Positive support system - Stages of Change Stages of Change:: Action - Psychosocial Test Tool Used:: HANDS Depression Questionnaire - Intervention PS - Interventions: Yes Attend Stress Management Classes, Yes Uses Stress Management Skills, No Referral to Mental Health, No Referral to [facility] Case Management, No Referral to Physician - Education Attended classes for:: Coping techniques, Signs & symptoms of depression, Stress management, Relaxation techniques - Assistive Devices Assistive Devices:: None Fall Risk Assessed:: Yes Patient Health Questionnaire 30-Day Re-eval Assessment 1. Little interest or pleasure in doing things: Several days 2. Feeling down, depressed, or hopeless: Several days 3. Trouble falling or staying asleep, or sleeping too much: Several days 4. Feeling tired or having little energy: Not at all 5. Poor appetite or overeating: Not at all 6. Feeling bad about yourself -- or that you are a failure or have let yourself or your family down: Not at all 7. Trouble concentrating on things, such as reading the newspaper or watching television: Not at all 8. Moving or speaking so slowly that other people could have noticed. Or the opposite - being so fidgety or restless that you have been moving around a lot more than usual: Not at all 9. Thoughts that you would be better off , or of hurting yourself in some way: Not at all How difficult have these problems made it for you to do your work, take care of things at home, or get along with other people?: Somewhat difficult Total Score: 3 Self-Efficacy 30-Day Re-eval Assessment We would like to know how confident you are in doing certain activities. Please select your confidence level for:: Select your confidence level for the following using the scale 1-10 where 1 is not at all confident and 10 is totally confident. Your score is the average of all 6 responses. Fatigue: How confident are you that you can keep the fatigue caused by your disease from interfering with the things you want to do? Select Number: 5 Physical Discomfort or Pain: How confident are you that you can keep the physical discomfort or pain of your disease from interfering with the things you want to do? Select Number: 8 Emotional Distress: How confident are you that you can keep the emotional distress caused by your disease from interfering with the things you want to do? Select Number: 7 Other Symptoms or Health Problems: How confident are you that you can keep other symptoms or health problems from interfering with the things you want to do? Select Number: 6 Different Tasks and Activities: How confident are you that you can do the different tasks and activities needed to manage your health condition so as to reduce your need to see a doctor? Select Number: 8 Medication: How confident are you that you can do things other than just taking medication to reduce how much your illness affects your everyday life? Select Number: 7 Total Score:: 6
[2018-03-17 09:06] VITALS: BP 88/52
== END 2018-03-31 23:59 ==
LOC: CR 11:30
PROVIDERS: Family Provider Internal Medicine; PCP Internal Medicine; Referring Provider Internal Medicine Cardiovascular Disease; Visit Provider Internal Medicine Cardiovascular Disease
DX: I50.20 Unspecified systolic (congestive) heart failure (principal); I48.2 Chronic atrial fibrillation
CPT/HCPCS: 93798

== ENCOUNTER 2018-05-06 15:44 | Outpatient (RCR) | payer OTHER, SELFPAY ==
[2018-04-10 16:12] VITALS: BMI 31.6
== END 2018-05-06 23:59 | disposition home or self-care (01) ==
LOC: NS 15:44
PROVIDERS: Family Provider Internal Medicine; PCP Internal Medicine; Visit Provider Internal Medicine Cardiovascular Disease
DX: E66.9 Obesity, unspecified (principal); Z86.32 Personal history of gestational diabetes; K52.9 Noninfective gastroenteritis and colitis, unspecified; I50.9 Heart failure, unspecified; I42.9 Cardiomyopathy, unspecified
CPT/HCPCS: 97802

== ENCOUNTER → 2018-05-16 15:34 | Outpatient (CLI) | payer OTHER, SELFPAY ==
[2018-04-10 16:12] VITALS: BMI 31.6
[2018-05-16 17:38] LABS: Absolute Lymphocyte Count 1.46 X10^3/ul (0.83-4.51); Absolute Neutrophil Count 6.4 X10^3/uL (2.0-7.7); Basophil# 0.01 X10^3/uL; Basophil% 0.1 % (0-1); Eosinophil# 0.05 X10^3/uL; Eosinophils% 0.5 % (0-5); Hematocrit 43.8 % (37-47); Hemoglobin 14.6 g/dl (12.0-15.0); Lymphocyte # 1.46 X10^3/ul (4.0); Lymphocyte % 15.8 % (19-41); Mean Corp Hgb Conc 33.3 g/gl (32-36); Mean Corpuscular Volume 83.9 fL (81-99); Mean Platelet Vol. 10.7 fl (6.2-12.0); Monocyte# 1.33 X10^3/uL; Monocyte% 14.4 % (0-10); Neutrophil # 6.36 X10^3/uL (2.7-7.7); Neutrophil % 68.7 % (47-70); Platelet Count 277 K/mm3 (150-450); RBC Distribution Width CV 13.8 % (11.6-14.6); RBC Distribution Width SD 42.1 fl (35.1-43.9); Red Blood Count 5.22 M/mm3 (4.2-5.4); White Blood Count 9.3 K/mm3 (4.4-11.0)
[2018-05-16 17:39] LABS: POSITIVE COUNT NO; POSITIVE DIFFERENTIAL NO; POSITIVE MORPHOLOGY NO
[2018-05-16 18:00] LABS: Erythrocyte Sedimentation Rate 18 mm/hr (0-30)
== END ==
PROVIDERS: Family Provider Internal Medicine; PCP Internal Medicine; Referring Provider Internal Medicine Gastroenterology; Visit Provider Internal Medicine Gastroenterology
DX: K51.90 Ulcerative colitis, unspecified, without complications (principal)
CPT/HCPCS: 36415; 85025; 85652

== ENCOUNTER → 2018-07-14 14:50 | Outpatient (CLI) | payer OTHER, SELFPAY ==
[2018-04-10 16:12] VITALS: BMI 31.6
--- NOTE | 2018-07-14 14:53 | ECHOD_ITS ---
Reason For Study: Dyspnea/SOB Procedure This was a 2D Doppler, Color Flow transthoracic echocardiogram. Exam performed in department. Left Ventricle Normal LV size. The estimated ejection fraction is 53 %. Left ventricular systolic function is lower limits of normal. No evidence for diastolic dysfunction. No regional wall motion abnormalities noted. Right Ventricle Normal RV size. Normal systolic function. Atria Normal left atrium. Normal right atrium. Mitral Valve Normal mitral valve. Tricuspid Valve Normal tricuspid valve. No tricuspid valve insufficiency. Aortic Valve Normal aortic valve. Trisinus/trileaflet aortic valve. Pulmonic Valve Normal pulmonic valve. Great Vessels Normal aortic root. The pulmonary artery is normal size. Normal inferior vena cava. Pericardium/Pleural No pericardial effusion. MMode/2D Measurements & Calculations LVIDd: 4.3 cm IVSd: 0.78 cm Ao root diam: 2.8 cm LVIDs: 3.0 cm LVPWd: 0.77 cm RVDd: 3.5 cm FS: 30.4 % LAV(MOD-bp): 33.9 ml LVAd ap4: 22.2 cm2 SV(MOD-sp4): 27.0 ml LAV(MOD-bp) Indexed: 18.6 ml/m2 EDV(MOD-sp4): 51.5 ml LAV(MOD-sp2): 22.7 ml EDV(sp4-el): 51.3 ml LAV(MOD-sp4): 32.8 ml LVAs ap4: 13.6 cm2 ESV(MOD-sp4): 24.5 ml ESV(sp4-el): 23.3 ml EF(MOD-sp4): 52.4 % EF(sp4-el): 54.6 % SV(sp4-el): 28.0 ml LA A4 area: 15.4 cm2 LA dimension(2D): 3.0 cm RA A4 area: 9.8 cm2 Doppler Measurements & Calculations MV E max adarsh: 51.7 cm/sec Lat Peak E' Adarsh: 11.2 cm/sec Med Peak E' Adarsh: 7.9 cm/sec MV A max adarsh: 65.3 cm/sec E/E' lat: 4.6 E/E' med: 6.5 MV E/A: 0.79 Ao V2 max: 122.3 cm/sec LV V1 max: 96.3 cm/sec PA V2 max: 88.6 cm/sec Ao max P.0 mmHg LV V1 max P.7 mmHg Ao V2 mean: 89.5 cm/sec Ao mean P.4 mmHg Ao V2 VTI: 25.2 cm Interpretation Summary Normal LV size. The estimated ejection fraction is 53 %. Left ventricular systolic function is lower limits of normal. No evidence for diastolic dysfunction. Compared to previous study, the left ventricular systolic function has improved.. Ordering Physician: Ryan Boyer Referring Physician: Ban Gong Performed By: Agatha Hull, OLIVERIO, RVT
== END ==
PROVIDERS: Family Provider Internal Medicine; PCP Internal Medicine; Referring Provider Internal Medicine Cardiovascular Disease; Visit Provider Internal Medicine Cardiovascular Disease
DX: I50.20 Unspecified systolic (congestive) heart failure (principal); R06.02 Shortness of breath
CPT/HCPCS: 93306

== ENCOUNTER → 2018-11-17 16:57 | Outpatient (CLI) | payer OTHER, SELFPAY ==
[2018-08-06 15:43] VITALS: BMI 30.6
[2018-11-17 17:54] LABS: Hematocrit 41.3 % (37-47); Hemoglobin 13.1 g/dL (12.0-15.0); Mean Corp Hgb Conc 31.7 g/dL (32-36); Mean Corpuscular Hgb 26.9 pg (27.0-32.0); Mean Corpuscular Volume 84.8 fL (81-99); Mean Platelet Vol. 10.7 fl (6.2-12.0); Platelet Count 213 K/mm3 (150-450); RBC Distribution Width CV 14.6 % (11.6-14.6); RBC Distribution Width SD 44.9 fl (35.1-43.9); Red Blood Count 4.87 M/mm3 (4.2-5.4); White Blood Count 7.3 K/mm3 (4.4-11.0)
[2018-11-17 18:28] LABS: CRP < 2.90 mg/L (0.0-3.0)
[2018-11-19 16:08] LABS: Endomysial Antibody IgA Negative (Negative)
[2018-11-20 14:13] LABS: Immunoglobulin A 343 mg/dL (87-352); t-Transglutaminase IgA <2 U/mL (0-3)
== END ==
PROVIDERS: Family Provider Internal Medicine; PCP Internal Medicine; Referring Provider Internal Medicine Gastroenterology; Visit Provider Internal Medicine Gastroenterology
DX: R19.7 Diarrhea, unspecified (principal)
CPT/HCPCS: 36415; 82784; 83516; 85027; 86140; 86255

== ENCOUNTER → 2019-08-20 14:56 | Outpatient (CLI) | payer OTHER, SELFPAY ==
[2019-02-24 07:15] VITALS: BMI 27.6
--- NOTE | 2019-08-20 14:59 | ECHOD_ITS ---
Reason For Study: DYSPNEA/SOB Procedure This was a 2D Doppler, Color Flow transthoracic echocardiogram. Exam performed in department. Left Ventricle Normal LV size. Left ventricular systolic function is normal. The estimated ejection fraction is 55 %. No regional wall motion abnormalities noted. Right Ventricle Normal RV size. Normal systolic function. Atria Normal left atrium. Normal right atrium. Mitral Valve Normal mitral valve. Tricuspid Valve Normal tricuspid valve. Mild (1+) tricuspid valve insufficiency. Pulmonary artery systolic pressure is 24 mmHg. Aortic Valve Normal aortic valve. Trisinus/trileaflet aortic valve. Pulmonic Valve Normal pulmonic valve. Great Vessels Normal aortic root. The pulmonary artery is normal size. Normal inferior vena cava. Pericardium/Pleural No pericardial effusion. MMode/2D Measurements & Calculations LVIDd: 4.6 cm IVSd: 0.74 cm Ao root diam: 2.6 cm LVIDs: 3.2 cm LVPWd: 0.75 cm RVDd: 3.5 cm FS: 29.8 % LAV(MOD-bp): 39.2 ml LA A4 area: 14.8 cm2 LA dimension(2D): 3.2 cm LAV(MOD-bp) Indexed: 22.5 ml/m2 LAV(MOD-sp2): 40.8 ml LAV(MOD-sp4): 37.1 ml RA A4 area: 9.7 cm2 Time Measurements MV dec time: 0.31 sec Doppler Measurements & Calculations MV E max adarsh: 62.0 cm/sec Lat Peak E' Adarsh: 12.8 cm/sec Med Peak E' Adarsh: 8.1 cm/sec MV A max adarsh: 65.4 cm/sec E/E' lat: 4.8 E/E' med: 7.7 MV E/A: 0.95 Ao V2 max: 121.5 cm/sec LV V1 max: 93.7 cm/sec PA V2 max: 81.7 cm/sec Ao max P.9 mmHg LV V1 max P.5 mmHg PI end-d adarsh: 111.0 cm/sec TR max adarsh: 221.3 cm/sec TR max P.6 mmHg Interpretation Summary Normal LV size. Left ventricular systolic function is normal. The estimated ejection fraction is 55 %. Mild (1+) tricuspid valve insufficiency. Structurally normal valves. Ordering Physician: Ryan Boyer Referring Physician: Ban Gong Performed By: Jocelynn Boyle RDCS, RVT
== END ==
PROVIDERS: PCP Internal Medicine; Referring Provider Internal Medicine Cardiovascular Disease; Visit Provider Internal Medicine Cardiovascular Disease
DX: I42.8 Other cardiomyopathies (principal); R06.02 Shortness of breath; R06.00 Dyspnea, unspecified
CPT/HCPCS: 93306

== ENCOUNTER → 2019-10-05 14:04 | Outpatient (CLI) | payer OTHER, SELFPAY ==
[2019-09-08 15:08] VITALS: BMI 27.6
[2019-10-05 16:01] LABS: Hematocrit 40.4 % (37-47); Hemoglobin 12.8 g/dL (12.0-15.0); Mean Corp Hgb Conc 31.7 g/dL (32-36); Mean Corpuscular Hgb 27.4 pg (27.0-32.0); Mean Corpuscular Volume 86.3 fL (81-99); Mean Platelet Vol. 11.7 fl (6.2-12.0); Platelet Count 202 K/mm3 (150-450); RBC Distribution Width CV 14.6 % (11.6-14.6); RBC Distribution Width SD 45.3 fl (35.1-43.9); Red Blood Count 4.68 M/mm3 (4.2-5.4); White Blood Count 5.8 K/mm3 (4.4-11.0)
[2019-10-05 16:52] LABS: Erythrocyte Sedimentation Rate 4 mm/hr (0-30)
[2019-10-05 17:05] LABS: ALB/GLOB Ratio 1.1 RATIO (0.9-2.4); AST(SGOT) 40 U/L (15-37); Alanine Aminotransfer ALT/SGPT 42 U/L (13-56); Albumin, Serum 3.7 g/dL (3.2-5.0); Alkaline Phosphatase 82 U/L (45-117); Anion Gap 6 (5-15); BUN 39 mg/dL (7-18); BUN/Creat Ratio 35.1 RATIO (10-20); CRP < 2.90 mg/L (0.0-3.0); Calcium,Total 9.3 mg/dL (8.5-10.1); Chloride 106 mmol/L (98-107); Creatinine, Serum 1.11 mg/dL (0.55-1.02); EST Glomerular Filtration Rate 54 mL/min (>60); Est Glom Filt Rate - Afr Amer 65 mL/min (>60); Globulin 3.5 g/dL (2.2-4.2); Glucose 67 mg/dL (74-106); Magnesium 2.3 mg/dL (1.6-2.6); Potassium 4.4 mmol/L (3.5-5.1); Protein, Total 7.2 g/dL (6.4-8.2); Sodium Level 139 mmol/L (136-145)
== END ==
PROVIDERS: PCP Internal Medicine; Referring Provider Internal Medicine Gastroenterology; Visit Provider Internal Medicine Gastroenterology
DX: K51.90 Ulcerative colitis, unspecified, without complications (principal)
CPT/HCPCS: 36415; 80053; 83735; 85027; 85652; 86140

== ENCOUNTER → 2024-01-07 | Outpatient (CLI) | payer OTHER, SELFPAY ==
[2024-01-07 17:33] LABS: Hematocrit 41.8 % (37-47); Hemoglobin 13.6 g/dL (12.0-15.0); Mean Corp Hgb Conc 32.5 g/dL (32-36); Mean Corpuscular Volume 86.2 fL (81-99); Mean Platelet Vol. 11.2 fl (6.2-12.0); Platelet Count 164 K/mm3 (150-450); RBC Distribution Width CV 13.8 % (11.6-14.6); RBC Distribution Width SD 42.6 fl (35.1-43.9); Red Blood Count 4.85 M/mm3 (4.2-5.4); White Blood Count 7.7 K/mm3 (4.4-11.0)
[2024-01-07 17:53] LABS: Erythrocyte Sedimentation Rate 13 mm/hr (0-30)
[2024-01-07 18:13] LABS: ALB/GLOB Ratio 1.1 RATIO (0.9-2.4); AST(SGOT) 25 U/L (15-37); Alanine Aminotransfer ALT/SGPT 32 U/L (13-56); Alkaline Phosphatase 92 U/L (45-117); Anion Gap 8 (5-15); BUN 38 mg/dL (7-18); BUN/Creat Ratio 31.4 RATIO (10-20); CRP < 2.90 mg/L (0.0-3.0); Calcium,Total 9.8 mg/dL (8.5-10.1); Chloride 107 mmol/L (98-107); Creatinine, Serum 1.21 mg/dL (0.55-1.02); EST Glomerular Filtration Rate 48 mL/min (>60); Est Glom Filt Rate - Afr Amer 58 mL/min (>60); Globulin 3.5 g/dL (2.2-4.2); Glucose 85 mg/dL (74-106); Potassium 4.4 mmol/L (3.5-5.1); Protein, Total 7.5 g/dL (6.4-8.2); Sodium Level 139 mmol/L (136-145)
== END | disposition home or self-care (01) ==
LOC: MTLAB 14:45
PROVIDERS: PCP Internal Medicine; Referring Provider Internal Medicine Gastroenterology; Visit Provider Internal Medicine Gastroenterology
DX: K51.90 Ulcerative colitis, unspecified, without complications (principal)
CPT/HCPCS: 36415; 80053; 85027; 85652; 86140

== ENCOUNTER → 2024-09-15 | Outpatient (CLI) | payer MEDICARE, SELFPAY ==
[2024-09-15 18:06] LABS: Hemoglobin 15.8 g/dL (12.0-15.0); Mean Corp Hgb Conc 33.6 g/dL (32-36); Mean Corpuscular Hgb 29.1 pg (27.0-32.0); Mean Corpuscular Volume 86.6 fL (81-99); Platelet Count 210 K/mm3 (150-450); RBC Distribution Width CV 13.2 % (11.6-14.6); Red Blood Count 5.43 M/mm3 (4.2-5.4); White Blood Count 6.9 K/mm3 (4.4-11.0)
[2024-09-15 18:17] LABS: Erythrocyte Sedimentation Rate 17 mm/hr (0-30)
[2024-09-15 18:38] LABS: ALB/GLOB Ratio 1.4 RATIO (0.9-2.4); AST(SGOT) 25 U/L (<=31); Alanine Aminotransfer ALT/SGPT 22 U/L (<=34); Albumin, Serum 4.1 g/dL (3.4-4.8); Alkaline Phosphatase 106 U/L (35-104); Anion Gap 13 (5-15); BUN 35 mg/dL (4-19); BUN/Creat Ratio 32.7 RATIO (10-20); CRP 3.15 mg/L (0.0-3.0); Calcium,Total 9.7 mg/dL (7.6-11.0); Carbon Dioxide 22.3 mmol/L (21.0-32.0); Chloride 106 mmol/L (98-108); Creatinine, Serum 1.08 mg/dL (0.70-1.20); EST Glomerular Filtration Rate 58 (>60); Globulin 2.9 g/dL (2.2-4.2); Glucose 94 mg/dL (70-99); Potassium 4.3 mmol/L (3.3-5.1); Sodium Level 140 mmol/L (133-145); Total Bilirubin 0.23 mg/dL (0.00-1.30)
== END | disposition home or self-care (01) ==
PROVIDERS: PCP Internal Medicine; Referring Provider Internal Medicine Gastroenterology; Visit Provider Internal Medicine Gastroenterology
DX: K51.90 Ulcerative colitis, unspecified, without complications (principal)
CPT/HCPCS: 36415; 80053; 85027; 85652; 86140